=== PATIENT | female | born 1965 | race African-American/Black ===

== ENCOUNTER 2022-06-03 13:07 | Emergency (ER) | payer OTHER, SELFPAY ==
[2022-06-03] VITALS (18 sets, daily range): BP systolic 112–140; BP diastolic 72–93; PULSE 72–95; RESP 18; TEMP 36.3; O2SAT 94–100; BMI 38.7
--- NOTE | 2022-06-03 13:25 | ED_ITS ---
HPI - Chest Pain General Time Seen by Provider: 13:25 Date Seen: 06/03/22 Chief Complaint: Chest Pain Stated Complaint: Numb jaw Time Seen by Provider: 06/03/22 13:24 Source: patient, RN notes reviewed and old records reviewed Mode of arrival: ambulatory Limitations: no limitations History of Present Illness HPI narrative: Bebe is a very pleasant woman in no acute distress who presents to the emergency room for evaluation regarding chest pain. Patient was noted to have been sitting had her desk earlier today and had the onset of substernal chest pain with radiation into her left jaw. She is unsure of radiation into our her arms as she appears to have chronic discomfort from using a walker. She uses the walker because she needs to have a right hip replacement which is scheduled for June 24. Patient has not had this happen to her in the past. It is associated with some slight dizziness. She has not had fever cough cold or congestion or trauma. Patient's cardiac risk factors include hypertension hyperlipidemia, tobacco use and obesity. Related Data Home Medications Medication Instructions Recorded Confirmed cefdinir 300 mg capsule 300 mg PO 05/23/22 cyclobenzaprine 10 mg tablet mg PO 05/23/22 fluticasone propionate 50 intranasal 05/23/22 mcg/actuation nasal spray,suspension gabapentin 300 mg capsule mg PO 05/23/22 losartan 100 mg tablet mg PO 05/23/22 naproxen 500 mg tablet mg PO 05/23/22 prednisone 20 mg tablet See Rx Instructions PO .Daily Ud 05/23/22 ranitidine HCl 300 mg tablet 300 mg PO 05/23/22 rizatriptan 5 mg tablet mg PO 05/23/22 simvastatin 20 mg tablet mg PO 05/23/22 Allergies Allergy/AdvReac Type Severity Reaction Status Date / Time azithromycin Allergy Verified 05/26/22 15:21 hydrocodone Allergy Verified 05/26/22 15:21 latex Allergy Verified 05/26/22 15:21 Penicillin Allergy Uncoded 05/26/22 15:21 Review of Systems Status of ROS Reports: 10 or more systems reviewed and unremarkable except as noted in History and below Const Denies: fever, chills or fatigue Eyes Denies: change in vision ENMT Reports: neck pain (Left-sided into jaw) Cardio Reports: chest pain and swelling of feet/ankles (Right lower extremity attributed to right hip pain, 2 weeks); Denies: palpitations or shortness of breath with exertion Resp Denies: shortness of breath or cough GI Denies: abdominal pain, nausea, vomiting or diarrhea Denies: painful urination Musculo Reports: neck pain (Left-sided into jaw) and extremity pain (Right hip pain.); Denies: back pain Neuro Denies: headache Psych Reports: other (Considerable stress over past few weeks) Endo Denies: fatigue PFSH PFS Medical History Asthma High cholesterol Hypertension Low back pain Peptic ulcer Surgical History History of cholecystectomy Social History Smoking Status: Current every day smoker service: No Exam Narrative Exam Narrative: Patient is alert and oriented. Very pleasant woman in no acute distress. EOM is full face is symmetrical with eyebrow equal. Tongue is midline. Neck is supple. No carotid bruit. Heart with regular rate and rhythm without murmur or rub. Lungs are clear bilaterally. Abdomen obese soft nontender. Lower extremity show mildly increased edema of the right lower extremity. No calf tenderness negative Homans sign. Romberg is negative. Finger to nose within normal limits bilaterally unable to lift right leg off the bed secondary to right hip pain which is chronic. Pedal pulses symmetrical. Const Vital Signs, click to edit/add: Vital Signs - 24 hr 06/03/22 13:13 06/03/22 14:10 06/03/22 14:12 Temperature 97.3 F L Pulse Rate 85 90 Pulse Rate [Pulse Oximeter] 84 Respiratory Rate 18 Blood Pressure 134/85 Blood Pressure [Right Upper Arm] 112/78 Pulse Oximetry 97 99 97 Oxygen Delivery Method Room Air 06/03/22 14:13 06/03/22 14:30 06/03/22 14:31 Temperature Pulse Rate 79 74 72 Pulse Rate [Pulse Oximeter] Respiratory Rate Blood Pressure 120/76 Blood Pressure [Right Upper Arm] Pulse Oximetry 97 96 96 Oxygen Delivery Method 06/03/22 15:00 06/03/22 15:01 06/03/22 15:02 Temperature Pulse Rate 81 82 81 Pulse Rate [Pulse Oximeter] Respiratory Rate Blood Pressure 115/83 Blood Pressure [Right Upper Arm] Pulse Oximetry 100 97 96 Oxygen Delivery Method 06/03/22 15:30 06/03/22 15:31 06/03/22 16:01 Temperature Pulse Rate 81 72 Pulse Rate [Pulse Oximeter] Respiratory Rate Blood Pressure 137/83 139/93 H Blood Pressure [Right Upper Arm] Pulse Oximetry 96 98 Oxygen Delivery Method 06/03/22 16:06 06/03/22 16:30 06/03/22 16:31 Temperature Pulse Rate 90 94 93 Pulse Rate [Pulse Oximeter] Respiratory Rate Blood Pressure 130/80 Blood Pressure [Right Upper Arm] Pulse Oximetry 97 96 94 Oxygen Delivery Method 06/03/22 17:00 06/03/22 17:01 06/03/22 20:27 Temperature Pulse Rate 92 95 Pulse Rate [Pulse Oximeter] 74 Respiratory Rate Blood Pressure 136/83 Blood Pressure [Right Upper Arm] 140/72 H Pulse Oximetry 97 97 Oxygen Delivery Method Documenting provider has reviewed patient's vital signs: yes Course Course Hospital Course: Will obtain EKG, troponin x2. Chest x-ray place an IV and get labs including CBC, comprehensive panel, D-dimer, CRP and urinalysis. Will give aspirin 324 mg p.o. Reevaluation(s) Reevaluation #1: Patient noted to have a negative troponin and reassuring EKG. She still has some mild discomfort extending into her neck and jaw. She has had reassuring vital signs with normal O2 saturations and has not been tachycardic. Initially my concern was regarding PE given the right lower extremity edema but given vital signs I am more concerned regarding possible underlying aortic pathology. Patient will undergo CTA of the chest abdomen and pelvis. If negative we will follow up with a ultrasound of the lower extremities. Reevaluation #2: Following negative CT of the chest as well as reassuring lower extremity ultrasounds patient was given Toradol 15 mg IV she now has now had resolution of her pain as well as the numbness in her left jaw. Vital Signs Vital signs: Initial Vital Signs Temperature 97.3 F L 06/03/22 13:13 Temperature Source Temporal Artery Scan 06/03/22 13:13 Pulse Rate 84 06/03/22 13:13 Respiratory Rate 18 06/03/22 13:13 Blood Pressure 112/78 06/03/22 13:13 Blood Pressure Mean 89 06/03/22 13:13 Blood Pressure Position Supine 06/03/22 13:13 Pulse Oximetry 97 06/03/22 13:13 Oxygen Delivery Method 06/03/22 13:13 Vital Signs Temperature 97.3 F L 06/03/22 13:13 Pulse Rate 84 06/03/22 13:13 Respiratory Rate 18 06/03/22 13:13 Blood Pressure 112/78 06/03/22 13:13 Pulse Oximetry 97 06/03/22 13:13 Oxygen Delivery Method 06/03/22 13:13 Temperature 97.3 F L 06/03/22 13:13 Pulse Rate 74 06/03/22 20:27 Respiratory Rate 18 06/03/22 13:13 Blood Pressure 140/72 H 06/03/22 20:27 Pulse Oximetry 97 06/03/22 17:01 Oxygen Delivery Method 06/03/22 13:13 MDM - Chest Pain MDM Narrative Medical decision making narrative: 1. Atypical chest pain-at this time patient has EKGs and cardiac enzymes that do not show any evidence of acute coronary syndrome, pericarditis or arrhythmia. Chest CT was negative for evidence of aortic dissection and lower extremity Doppler did not show any evidence of DVT. Patient's discomfort is dissipated at this time after the administration of Toradol. While all of these tests are reassuring patient has multiple risk factors for heart disease. She cannot recall the last time she has had a stress test and she does have a pending hip surgery on June 24. Would recommend follow-up for scheduling of a chemical stress test. She may skip her aspirin dose tonight as we gave her full-dose today. She should return to the emergency room if she has return of her chest pain. 2. Disposition-patient is discharged home. She will return as needed. Discussion rate guarding light activity and attempts not to participate in stressful situations. Also given her days off of work including today tomorrow and June 05. Medical Records Data Attestation: I reviewed the patient's medical records. Lab Data Attestation: I reviewed the patient's lab results. Labs: Lab Results 06/03/22 06/03/22 06/03/22 Range/Units 14:05 14:05 14:05 WBC 6.59 (4.50-11.00) K/uL RBC 4.17 (4.00-5.20) m/uL Hgb 12.6 (12.0-16.0) gm/dL Hct 39.6 (33.0-51.0) % MCV 95 (80-100) fL MCH 30 (26-34) pg MCHC 32 (32-36) gm/dL RDW Coeff of Ra 13.4 (11.5-15.5) % Plt Count 241 (140-440) K/uL Neut % (Auto) 63.0 (42.0-72.0) % Lymph % (Auto) 28.2 (20-44) % [place] % (Auto) 6.7 (0.0-11.0) % Eos % (Auto) 1.7 (0.0-7.0) % Baso % (Auto) 0.2 (0.0-3.0) % Neut # (Auto) 4.16 (1.7-7.0) K/uL Lymph # (Auto) 1.86 (0.90-2.90) K/uL [place] # (Auto) 0.40 (0.00-0.90) K/UL Eos # (Auto) 0.11 (0.00-0.50) K/uL Baso # (Auto) 0.01 (0.00-0.30) K/uL Abs Immat Gran (auto) 0.01 (0.00-0.30) K/uL D-Dimer Quant (PE/DVT) 1.28 H (0.00-0.50) ug/ml Sodium 140 (135-149) mmol/L Potassium 4.0 (3.6-5.1) mmol/L Chloride 104 (96-114) mmol/L Carbon Dioxide 29 (20-32) mmol/L BUN 12 (7-30) mg/dL Creatinine 0.9 (0.5-1.5) mg/dL Estimated Creat Clear 63.78 Estimated GFR 74 ml/min Glucose 100 (60-115) mg/dL Calcium 9.7 (8.4-10.6) mg/dL Total Bilirubin 0.3 (0.1-1.5) mg/dL AST 27 (12-35) U/L ALT 24 (4-35) U/L Alkaline Phosphatase 114 (40-150) U/L Troponin I < 0.01 L (0.01-0.04) ng/mL Total Protein 7.6 (6.0-8.3) g/dL Albumin 4.4 (3.3-5.0) g/dL Urine Color (Yellow) Urine Appearance (Clear) Urine pH (5.0-8.5) Ur Specific [place] (1.000-1.030) Urine Protein (Negative) Urine Glucose (UA) (Negative) Urine Ketones (Negative) Urine Blood (Negative) Urine Nitrite (Negative) Urine Bilirubin (Negative) Urine Urobilinogen (0.2-1.0) Ur Leukocyte Esterase (Negative) Urine RBC (0-2) Urine WBC (0-5) Ur Squamous Epith Cells (None-Few) Urine Bacteria (None) 06/03/22 06/03/22 Range/Units 18:00 18:03 WBC (4.50-11.00) K/uL RBC (4.00-5.20) m/uL Hgb (12.0-16.0) gm/dL Hct (33.0-51.0) % MCV (80-100) fL MCH (26-34) pg MCHC (32-36) gm/dL RDW Coeff of Ra (11.5-15.5) % Plt Count (140-440) K/uL Neut % (Auto) (42.0-72.0) % Lymph % (Auto) (20-44) % [place] % (Auto) (0.0-11.0) % Eos % (Auto) (0.0-7.0) % Baso % (Auto) (0.0-3.0) % Neut # (Auto) (1.7-7.0) K/uL Lymph # (Auto) (0.90-2.90) K/uL [place] # (Auto) (0.00-0.90) K/UL Eos # (Auto) (0.00-0.50) K/uL Baso # (Auto) (0.00-0.30) K/uL Abs Immat Gran (auto) (0.00-0.30) K/uL D-Dimer Quant (PE/DVT) (0.00-0.50) ug/ml Sodium (135-149) mmol/L Potassium (3.6-5.1) mmol/L Chloride (96-114) mmol/L Carbon Dioxide (20-32) mmol/L BUN (7-30) mg/dL Creatinine (0.5-1.5) mg/dL Estimated Creat Clear Estimated GFR ml/min Glucose (60-115) mg/dL Calcium (8.4-10.6) mg/dL Total Bilirubin (0.1-1.5) mg/dL AST (12-35) U/L ALT (4-35) U/L Alkaline Phosphatase (40-150) U/L Troponin I < 0.01 L (0.01-0.04) ng/mL Total Protein (6.0-8.3) g/dL Albumin (3.3-5.0) g/dL Urine Color Yellow (Yellow) Urine Appearance Clear (Clear) Urine pH 6.0 (5.0-8.5) Ur Specific [place] 1.015 (1.000-1.030) Urine Protein Negative (Negative) Urine Glucose (UA) Negative (Negative) Urine Ketones Negative (Negative) Urine Blood Negative (Negative) Urine Nitrite Negative (Negative) Urine Bilirubin Negative (Negative) Urine Urobilinogen 0.2 (0.2-1.0) Ur Leukocyte Esterase Negative (Negative) Urine RBC 0-2 (0-2) Urine WBC 0-2 (0-5) Ur Squamous Epith Cells Few (None-Few) Urine Bacteria None (None) Imaging Data Chest x-ray: Attestation: I have reviewed the pertinent imaging results. My impression: No acute infiltrates Radiologist's impression: No acute findings CT Chest/Ab/Pelvis: Attestation: I have reviewed the pertinent imaging results. Radiologist's impression: No evidence of aortic aneurysm or dissection. No evidence of acute or chronic pulmonary thromboemboli. The origin of the great vessels is unremarkable. Normal size cardiac silhouette without any pericardial effusion. No abnormal mediastinal or hilar lymphadenopathy. No evidence of pleural effusion or chest wall pathology. No abnormal intra pulmonary nodular densities are identified. No focal hepatic or splenic pathology. Previously noted cystic lesion in the tail of the pancreas is not seen on the current study. Previously noted colitis involving the descending colon has resolved since the last previous study. No evidence of pancreatic ductal dilatation. No peripancreatic inflammatory changes. Status post cholecystectomy. No adrenal pathology. No kidney stones or obstructive uropathy. No retroperitoneal lymphadenopathy. Normal appendix. The uterine fibroids. IMPRESSION: 1. No evidence of aortic aneurysm or dissection. 2. Origin of the great vessels is unremarkable. 3. No evidence of pulmonary thromboemboli. 4. Uterine fibroids. 5. Previously noted lesion within the distal body/tail of the pancreas is not seen on the current study. 6. Uterine fibroids. ECG Data Attestation: I personally reviewed and interpreted this ECG as follows: ECG interpretation date: 06/04/22 Interpretation: EKG 1. By my read shows sinus rhythm without any acute ST or T-wave changes. EKG 2. By my read shows sinus rhythm with sinus arrhythmia the rate of 76. No indications of acute ST or T-wave changes. Discharge Plan Discharge Clinical Impression: Atypical chest pain Patient Disposition: Home, Self-Care Condition: Improved Additional Instructions: You may skip your dose of aspirin tonight as you received a full dose today. Recommend light activity and no work over the next 48 hours. I will provide a note to that extent. Recommend follow-up with your primary MD to be scheduled for a chemical stress test. Return as needed for worsening symptoms and as needed. Prescriptions: No Action rizatriptan 5 mg tablet PO naproxen 500 mg tablet PO fluticasone propionate 50 mcg/actuation spray,suspension intranasal losartan 100 mg tablet PO gabapentin 300 mg capsule PO simvastatin 20 mg tablet PO ranitidine HCl 300 mg tablet 300 mg PO cyclobenzaprine 10 mg tablet PO cefdinir 300 mg capsule 300 mg PO prednisone 20 mg tablet See Rx Instructions PO .Daily Ud Rx Instructions: 40 MG PO DAILY FOR 4 DAYS, THEN 20 MG PO DAILY FOR 2 DAYS Follow Up/Referrals: Chante Manley PA [Primary Care Provider] - Stand Alone Forms: [facility] Info Instructions
--- NOTE | 2022-06-03 13:37 | CRLHL7_ITS ---
For Patients: As a result of the Century Cures Act, medical imaging exams and procedure reports are released immediately into your electronic medical record. You may view this report before your referring provider. If you have questions, please contact your health care provider. INDICATION: Chest pain COMPARISON: December 02, 2021 TECHNIQUE: Single-view study FINDINGS: TUBES AND LINES: None. HEART AND MEDIASTINUM: The heart size is normal. The mediastinal contour appears normal for patient age. LUNGS AND PLEURAL SPACES: The lungs appear normal.The pleural spaces are unremarkable. OSSEOUS STRUCTURES: Age-appropriate appearance. No acute focal finding. IMPRESSION: Normal single-view chest radiograph Dictated by Gordo Ramirez MD @ 06/03/2022 2:43:42 PM (Electronically Signed)
[2022-06-03] MEDS: ASPIRIN 81 MG TAB.CHEW 324 MG PO (14:02)
--- OUTSIDE RECORDS SUMMARY | 2022-06-03 14:13 | XMS_ITS | Clinical Summary ---
:1965 Author Organization [employer] [facility] [place] [address] Care Team Providers Name Role Phone Chante Manley Primary Care Provider Allergies Active Allergy Reactions Severity Noted Date Comments Azithromycin Nausea Only 08/14/2010 Penicillins 05/31/2009 Hydrocodone-Acetaminophen Shortness Of Breath, Chest 1 Pain Medications Medication Sig Dispensed Refills Start Date End Date Status GLUCOSAMINE-CHONDROI take one tab 0 05/31/2009 Active TIN 500 MG-400 MG daily CAP MULTIVITAMIN TAB take 1 tablet 0 05/31/2009 Active by oral route once daily with food aspirin (ECOTRIN) 81 Take 1 tablet 0 08/04/2017 Active mg enteric coated by mouth once tablet daily with a meal. diphenhydrAMINE Take 1 capsule 0 04/11/2020 Active (BENADRYL) 25 mg by mouth at capsuleIndications: bedtime if Allergic rhinitis needed. due to other allergic trigger, unspecified seasonality mometasone-formotero Inhale 2 Puffs 13 g 12 04/01/2021 Active l (DULERA) 200-5 by mouth 2 mcg/actuation times daily. inhalerIndications: Cough fluticasone (50 mcg Inhale 2 1 Bottle 11 04/02/2021 Active per actuation) nasal Sprays into solution affected (FLONASE)Indications nostril(s) : Nasal congestion once daily. naproxen (NAPROSYN) Take 1 Tablet 180 tablet. 3 04/22/2021 Active 500 mg (500 mg) by tabletIndications: mouth 2 times Lumbar daily with radiculopathy, meals. Chronic pain of right knee triamcinolone Apply 80 g 1 05/30/2021 Activ e (ARISTOCORT; topically to KENALOG) 0.1 % affected creamIndications: area(s) 2 Itching times daily if needed for Other (Specify). To itching/rash in groin area. montelukast Take 1 Tablet 90 Tablet 1 11/24/2021 Act sonia (SINGULAIR) 10 mg (10 mg) by tabletIndications: mouth at Allergic rhinitis bedtime. due to other allergic trigger, unspecified seasonality rizatriptan (MAXALT) Give at 27 Tablet 1 12/12/2021 Active 5 mg minimum 2hrs tabletIndications: apart. TAKE 1 Migraine without TO 2 TABLETS status migrainosus, BY MOUTH AT not intractable, ONSET OF unspecified migraine MIGRAINE type NEEDED. MAY REPEAT IN 2 HOURS NEEDED. MAX 30MG in 24HR. albuterol HFA Inhale 1-2 8.5 g 2 12/30/2021 Acti ve (PRO-AIR; VENTOLIN; Puffs by mouth PROVENTIL) 90 every 4 hours mcg/actuation if needed for inhalerIndications: Shortness of Cough Breath 1st choice. gabapentin Take 300 mg 360 Capsule 1 02/20/2022 Acti ve (NEURONTIN) 300 mg AM, 300 mg PM, capsuleIndications: 600 mg Lumbar radiculopathy bedtime. cyclobenzaprine Take 1 Tablet 15 Tablet 1 03/31/2022 Active (FLEXERIL) 10 mg (10 mg) by tabletIndications: mouth 2 times Lumbar radiculopathy daily if needed for Muscle Spasm. CPAPIndications: MARII CPAP machine 1 Each 11 04/23/2022 Active (obstructive sleep for home use apnea) at pressure 4-15 cmw, nasal mask x1/3month with nasal pillows x 2/mo pantoprazole Take 1 Tablet 90 Tablet 1 05/20/2022 Ac tive (PROTONIX) 20 mg (20 mg) by tabletIndications: mouth once Chronic GERD daily before a meal losartan (COZAAR) Take 1 Tablet 90 Tablet 1 05/20/2022 Active 100 mg (100 mg) by tabletIndications: mouth once Hypertension, daily. unspecified type simvastatin (ZOCOR) Take 1 Tablet 90 Tablet 0 05/20/2022 Active 20 mg (20 mg) by tabletIndications: mouth at Hyperlipidemia, bedtime unspecified hyperlipidemia type losartan (COZAAR) Take 1 Tablet 90 Tablet 3 05/07/2021 0 Discontinued 100 mg (100 mg) by 22 tabletIndications: mouth once Hypertension, daily. unspecified type simvastatin (ZOCOR) Take 1 Tablet 90 Tablet 3 05/07/202105/20 Discontinued 20 mg (20 mg) by 22 tabletIndications: mouth at Hyperlipidemia, bedtime. unspecified hyperlipidemia type pantoprazole Take 1 Tablet 90 Tablet 1 10/09/2021 05/20/20 Di scontinued (PROTONIX) 20 mg (20 mg) by 22 tabletIndications: mouth once Chronic GERD daily before a meal Active Problems Problem Noted Date Chronic GERD 04/01/2021 Adenomatous colon polyp 10/15/2017 Overview: Colonoscopy 09/2017 polyp, repeat in 5 ye ars HTN (hypertension) 08/28/2015 Hyperlipidemia 01/24/2015 Type 2 diabetes mellitus without complication 01/25/20 15 Overview: Diagnosed January 2015. No current diabetes medications. Lumbar facet arthropathy 07/31/2011 DDD (degenerative disc disease), lumbar 06/30/2011 MARII 02/21/2010 AHI- 22 REM and position dependent 2009 Shift work sleep disorder 02/25/2010 Migraine, unspecified, without mention of intractable migraine without 12/20/2009 mention of status migrainosus Allergic rhinitis, cause unspecified 12/20/2009 Resolved Problems Problem Noted Date Resolved Date Impaired fasting glucose 01/23/2015 01/24/2015 Back pain 03/23/2013 10/25/2013 Trochanteric bursitis of right hip 07/31/201110/25 Reactive depression (situational) 04/03/20112012 Back pain 04/03/2011 07/31/2011 Prolonged depressive reaction 04/03/2011 02/17/2013 Encounters Date Type Specialty Care Team Description 05/19/2022 Telemedicine Aziza Remy Failed Appoin ELLIE Parker 05/19/2022 Refill Chante Manley Refill Request CHIDI Urban (Pantoprazole, Losartan, Simvastatin) 05/14/2022 Telephone Yevgeniy Willis MD Appointment 04/23/2022 Office Visit Yevgeniy Willis MD Sleep Follow -up 04/23/2022 Travel 04/21/2022 Office Visit Jc Bautista MD (Consult-allerg ic rhinitis referred by Eliana MURILLO) 04/21/2022 Telephone Yevgeniy Willis MD Medication M anagement 04/21/2022 Travel 04/16/2022 Telephone Jane Martin Prior Authori fanta Ni MD (gabapentin (NE URONTIN) 300 mg capsule APPROVED 03/17/22-04/16/23 ) 04/15/2022 Office Visit Eric Zavala Consult (Right leg pain ) MD Harvey 04/15/2022 Travel 04/09/2022 Ancillary Procedure 04/09/2022 Ancillary Procedure 04/09/2022 Office Visit Galileo Gutierrez MD (Right leg pain /injuries - needs a work le tter); Follow Up (See 02/[address] with Dr. Martin) 04/09/2022 Travel from Last 3 Months Immunizations Name Administration Dates Next Due HepA-HepB (Twinrix) 10/15/2018, 09/25/2017, 08/28/2015 Influenza, IIV3 (Age 6-35 mos) 06/25/2011 Influenza, IIV3 (Age >=3 years) 07/19/2014, 06/14/2013, 09/2010, 05/31/2009 Influenza, IIV4 05/30/2021, 10/15/2018, 09/25/2017, 05/22/2015 Influenza, IIV4 (=>6mos) MDV 06/04/2018 Pneumococcal Poly,23-Valent 05/30/2021 (Pneumovax) Tdap 10/15/2018, 05/31/2009 Family History Medical History Relation Name Comments Diabetes Brother Cancer Father trachea, lungs Diabetes Maternal Grandfather Diabetes Mother Diabetes Sister Cancer-breast No Family History Relation Name Status Comments Brother Father Maternal Grandfather Mother Sister Social History Tobacco Use Types Packs/Day Years Used Date Current Some Day Smoker Cigarettes 0.25 20 Smokeless Tobacco: Never Used Tobacco Cessation: Ready to Quit: Yes; C ounseling Given: Yes Comments: 2-3 cigarette per day, but not every day Alcohol Use Standard Drinks/Week Comments No 0 (1 standard drink = 0.6 oz pure alcoho l) 0 Alcohol Habits Answer Date Recorded How often do you have a drink containing alcohol? Not asked How many drinks containing alcohol do you have on a typical Not asked day when you are drinking? How often do you have six or more drinks on one occasion? No t asked Comment: 0 02/20/2022 Sex Assigned at Date Recorded Not on file Obstetrics History Last Filed Vital Signs Vital Sign Reading Time Taken Comments Blood Pressure 113/56 04/23/2022 3:03 PM CDT Pulse 91 04/23/2022 3:03 PM CDT Temperature 36.6 ??C (97.9 ??F) 04/21/2022 9:42 AM CDT Respiratory Rate 20 04/02/2021 3:46 PM CDT Oxygen Saturation 96% 04/23/2022 3:03 PM CDT Inhaled Oxygen Concentration - - Weight 107 kg (236 lb) 04/21/2022 9:42 AM CDT Height 165.7 cm (5' 5.25) 04/21/2022 9:42 AM CDT Body Mass Index 38.97 04/21/2022 9:42 AM CDT Plan of Treatment Health Maintenance Due Date Last Done Comments Zoster (shingles) series for age 1106/27/2013 50+ (1 of 2) Fecal testing non-DNA 01/31/2016 01/30/2015 (FIT,FOBT,iFOBT) for age 45-75 COVID-19 vaccine series (3 - 01/26/2021 12/01/2020, 021 Booster for Moderna series) Influenza for age 50-64 04/24/2022 05/30/2021, 10/15/2018, 06/04/2018, Additional history exists Depression screening for age 12+ 05/30/2022 05/30/2021, , 04/11/2020, Additional history exists Pneumococcal series for age 19-64 05/30/2022 05/30/2021 (2 - PCV) Colonoscopy through age 75 10/14/2022 10/14/2017, 8 Mammogram for age 45-75 02/06/2023 02/06/2022, 10/29/2018, 10/14/2017, Additional history exists BMI (ht and wt on same day) for 04/21/2023 04/21/2022, 02/2021, age 18+ 04/11/2020, Additional history exists Lipids for age 45-75 05/30/2026 05/30/2021, 09/20/2020, 10/15/2018, Additional history exists Pap test for age 21-65 05/30/2026 05/30/2021, 05/30/2021, 09/25/2017, Additional history exists Tetanus booster 10/15/2028 10/15/2018, 05/31/2009 Hepatitis B series for Diabetes Completed 10/15/2018, 09/2017, 08/28/2015 Tdap Completed 10/15/2018, 05/31/2009 Hepatitis C screening for age Completed 09/20/2020 18-79 Procedures Procedure Name Priority Date/Time Associated Diagnosis Comme nts NV SPMTRY W/VC Routine 04/21/2022 12:00 Allergic rhinitis EXPIRATORY MIGUE W/WO AM CDT due to other MXML VOL VNTJ allergic trigger, unspecified seasonality NV PERCUTANEOUS TESTS Routine 04/21/2022 12:00 Allergic rhinit is Results for this W/ALLERGENIC EXTRACTS AM CDT due to other proced ure are in allergic trigger, the result s unspecified section. seasonality XR SPINE LUMBAR 3 Routine 04/09/2022 9:38 AM Right buttock casper n Results for this VIEWS CDT procedure are i n the results section. XR HIP 1 VIEW W Routine 04/09/2022 9:38 AM Right groin pain Re sults for this PELVIS RIGHT CDT procedure are i n the results section. from Last 3 Months Results NV PERCUTANEOUS TESTS W/ALLERGENIC EXTRACTS (04/21/2022 12:00 AM CDT) Narrative This result has an attachment that is no t available. Jc Bautista MD [facility] - ALLERGY [facility] IMMUNOLOGY SERVICES NV SPIROMETRY W VITAL CAPACITY (04/21/2022 12:00 AM CDT) Narrative This result has an attachment that is no t available. Jc Bautista MD [facility] - RESPIRATORY SYSTEM SERV ICES XR SPINE LUMBAR 3 VIEWS (04/09/2022 9:38 AM CDT) Anatomical Region Laterality Modality LUMBAR SPINE Computed Radiography Specimen (Source) Anatomical Collection Method Collection Time Re ceived Time Location / / Volume Laterality 04/09/2022 12:47 PM CDT Impressions 04/09/2022 12:47 PM CDT Mild multilevel degenerative disc disease throughout the lumbar spine. Facet degeneration L4-5 and L5-S1 with g rade 1 degenerative spondylolisthesis L4 on L5. Dictated by Tom Pacheco MD @ Apr 09 2 022 12:47PM (Electronically Signed) ?? Narrative 04/09/2022 12:47 PM CDT For Patients: ??As a result of the Cures Act, medical imaging exams and procedure report s are released immediately into your [facility] medical record. ??You may view this report before your referring provider. ??If you have questions, please contact your health care provider. INDICATION: Right buttock pain TECHNIQUE: 3-view lumbar spine. COMPARISON: MRI 09/29/2019, x-rays 06/29/19 FINDINGS: Severe degenerative joint disease right hip. Slight rightward curvature lumbar spine. Status post cholecystectomy. Degenerative facet arthropathy L4-5 and L5- S1 with grade 1 degenerative spondylolisthes is of L4 on L5. Mild multilevel discogen ic spurring throughout the lumbar spine with relative preservation of the disc spaces. Procedure Note Tom Pacheco MD - 04/09/2022For matting of this note might be different from the original. For Patients: As a result of the Cures Act, medical imaging exams and procedure reports are released immediately into your electronic medical record. You may view this report before your referring provider. If you have questions, please contact yo health care provider. INDICATION: Right buttock pain TECHNIQUE: 3-view lumbar spine. COMPARISON: MRI 09/29/2019, x-rays 06/29/19 FINDINGS: Severe degenerative joint disease right hip. Slight rightward curvature lumbar spine. Status post cholecystectomy. Degenerative facet arthropathy L4-5 and L5- S1 with grade 1 degenerative spondylolisthesis of L4 on L5. Mild multilevel discogenic spurring thro ughout the lumbar spine with relative preservation of the disc spaces. IMPRESSION: Mild multilevel degenerative disc diseas e throughout the lumbar spine. Facet degeneration L4-5 and L5-S1 with g rade 1 degenerative spondylolisthesis L4 on L5. Dictated by Tom Pacheco MD @ Apr 09 12:47PM (Electronically Signed) Jane Martin MD GENERAL IMAGING XR HIP 1 VIEW W PELVIS RIGHT (04/09/2022 9:38 AM CDT) Anatomical Region Laterality Modality HIPS, HIPR, Pelvis Computed Radiography Specimen (Source) Anatomical Collection Method Collection Time Re ceived Time Location / / Volume Laterality 04/09/2022 12:45 PM CDT Narrative 04/09/2022 12:45 PM CDT For Patients: ??As a result of the Cures Act, medical imaging exams and procedure report s are released immediately into your [facility] medical record. ??You may view this report before your referring provider. ??If you have questions, please contact your health care provider. Indication: Right groin pain Technique: Pelvis and right hip 2 views Comparison: None Findings: Severe narrowing at the right hip joint with extensive subchondral cystic change and reactive sclerosis. No fracture. Moderate narrowing and spurring left hip joint. Mild degenerative changes at the SI joints. Impression: Severe degenerative joint disease right hip. Dictated by Tom Pacheco MD @ Apr 09 12:45PM (Electronically Signed) ?? Procedure Note Tom Pacheco MD - 04/09/2022For matting of this note might be different from the original. For Patients: As a result of the Cures Act, medical imaging exams and procedure reports are released immediately into your electronic medical record. You may view this report before your referring provider. If you have questions, please contact yo health care provider. Indication: Right groin pain Technique: Pelvis and right hip 2 views Comparison: None Findings: Severe narrowing at the right hip joint with extensive subchondral cystic change and reactive sclerosis. No fracture. Moderate narrowing and spurring left hip joint. Mild degenerative changes at the SI joints. Impression: Severe degenerative joint disease right hip. Dictated by Tom Pacheco MD @ Apr 09 12:45PM (Electronically Signed) Jane Martin MD GENERAL IMAGING from Last 3 Months Insurance Payer Benefit Plan / Subscriber ID Effective Dates Phone Addre ss Type Group WC WORKERS COMP LITO -[id number] 2020-Presen [address] [address] [place] [address] WC WORKERS COMP WC SFM [id number] 2020-Presen [address] [place] [address] WC WORKERS COMP WC SFM [id number] 2020-Presen [address] [place] [address] WC WORKERS COMP WC SFM [id number] 2020-Presen [address] [place] [address] MEDICA MEDICA CHOICE [id number] 2021-Present [address] [address] [place] [address] Bebe Christensen L Workers Comp Self 1965 [address] (Home) [address] [place] [address] Bebe Christensen L Workers [employer] Self 1965 [address] (Home) [address] [place] [address] Bebe Christensen L Workers [employer] Self 1965 [address] (Home) [place] [address] Orly Christensenyl L Workers Comp Self [address] (Home) [place] [address] Care Teams Television Camera Operator Relationship Specialty Start Date End Date Chante Manley PA PCP - General 05/31/09 [address] [place] [address]
[2022-06-03 14:18] LABS: Basophils Absolute Auto 0.01 K/uL (0.00-0.30); Basophils Percent Auto 0.2 % (0.0-3.0); Eosinophils Absolute Auto 0.11 K/uL (0.00-0.50); Eosinophils Percent Auto 1.7 % (0.0-7.0); Hematocrit 39.6 % (33.0-51.0); Hemoglobin* 12.6 gm/dL (12.0-16.0); Immature Granulocytes Abs Auto 0.01 K/uL (0.00-0.30); Lymphocytes Absolute Auto 1.86 K/uL (0.90-2.90); Lymphocytes Percent Auto 28.2 % (20-44); Mean Corpuscular HGB Conc 32 gm/dL (32-36); Mean Corpuscular Hemoglobin 30 pg (26-34); Mean Corpuscular Volume 95 fL (80-100); Monocytes Percent Auto 6.7 % (0.0-11.0); Neutrophils Absolute Auto 4.16 K/uL (1.7-7.0); Platelet Count* 241 K/uL (140-440); RDW Coefficient of Variation % 13.4 % (11.5-15.5); Red Blood Count 4.17 m/uL (4.00-5.20); White Blood Count* 6.59 K/uL (4.50-11.00)
[2022-06-03 14:24] LABS: Slide Review Reflex No
[2022-06-03 14:31] LABS: Albumin* 4.4 g/dL (3.3-5.0); Chloride* 104 mmol/L (96-114)
[2022-06-03 14:32] LABS: Sodium* 140 mmol/L (135-149)
[2022-06-03 14:34] LABS: Alkaline Phosphatase* 114 U/L (40-150); Aspartate Amino Transferase* 27 U/L (12-35); Bilirubin Total* 0.3 mg/dL (0.1-1.5); Carbon Dioxide* 29 mmol/L (20-32); Creatinine* 0.9 mg/dL (0.5-1.5); Est. Creatinine Clearance* 63.78; Estimated Glomerular Filt Rate 74 ml/min; Total Protein* 7.6 g/dL (6.0-8.3)
[2022-06-03 14:35] LABS: Alanine Aminotransferase* 24 U/L (4-35); Blood Urea Nitrogen* 12 mg/dL (7-30); Calcium* 9.7 mg/dL (8.4-10.6); Glucose* 100 mg/dL (60-115)
[2022-06-03 14:39] LABS: D Dimer Quantitative* 1.28 ug/ml (0.00-0.50)
[2022-06-03 14:52] LABS: Troponin I* < 0.01 ng/mL (0.01-0.04)
--- NOTE | 2022-06-03 15:20 | CRLHL7_ITS ---
For Patients: As a result of the Cures Act, medical imaging exams and procedure reports are released immediately into your electronic medical record. You may view this report before your referring provider. If you have questions, please contact your health care provider. INDICATION: Chest pain radiating to the neck; rule out aortic dissection. COMPARISON: CT abdomen and pelvis with intravenous contrast April 16, 2020 ; Portable AP Chest rectal 2021. TECHNIQUE: CT angio chest with intravenous contrast; CT abdomen and pelvis with intravenous contrast; coronal and sagittal reformats. FINDINGS: No evidence of aortic aneurysm or dissection. No evidence of acute or chronic pulmonary thromboemboli. The origin of the great vessels is unremarkable. Normal size cardiac silhouette without any pericardial effusion. No abnormal mediastinal or hilar lymphadenopathy. No evidence of pleural effusion or chest wall pathology. No abnormal intra pulmonary nodular densities are identified. No focal hepatic or splenic pathology. Previously noted cystic lesion in the tail of the pancreas is not seen on the current study. Previously noted colitis involving the descending colon has resolved since the last previous study. No evidence of pancreatic ductal dilatation. No peripancreatic inflammatory changes. Status post cholecystectomy. No adrenal pathology. No kidney stones or obstructive uropathy. No retroperitoneal lymphadenopathy. Normal appendix. The uterine fibroids. IMPRESSION: 1. No evidence of aortic aneurysm or dissection. 2. Origin of the great vessels is unremarkable. 3. No evidence of pulmonary thromboemboli. 4. Uterine fibroids. 5. Previously noted lesion within the distal body/tail of the pancreas is not seen on the current study. 6. Uterine fibroids. Please note that all CT scans at this facility use dose modulation, iterative reconstruction, and/or weight-based dosing when appropriate to reduce radiation dose to as low as reasonably achievable. Dictated by John Montesinos MD @ 06/03/2022 5:59:18 PM (Electronically Signed)
--- NOTE | 2022-06-03 15:44 | PC.NURSE ---
pt given meal tray per request
--- NOTE | 2022-06-03 18:05 | CRLHL7_ITS ---
For Patients: As a result of the Century Cures Act, medical imaging exams and procedure reports are released immediately into your electronic medical record. You may view this report before your referring provider. If you have questions, please contact your health care provider. INDICATION: Elevated D-dimer. TECHNIQUE: Ultrasound venous duplex bilateral lower extremity. Compression venous exam was performed using lindsay-scale, color Doppler, and spectral Doppler analysis. COMPARISON: None. FINDINGS: Deep veins: Sonographic imaging demonstrates the right common femoral, deep femoral, superficial femoral, popliteal, posterior tibial and the contralateral right common femoral veins to be fully compressible with normal color Doppler blood flow. Superficial veins: Greater saphenous vein is fully compressible. No popliteal cyst. IMPRESSION: Normal bilateral lower extremity venous ultrasound, no sign of deep venous thrombosis. Dictated by Nicolás Hernandez MD @ 06/03/2022 7:27:57 PM (Electronically Signed)
[2022-06-03 18:11] LABS: Appearance Urine Clear (Clear); Bilirubin Urine Negative (Negative); Blood Urine Negative (Negative); Color Urine Yellow (Yellow); Glucose Urine Negative (Negative); Ketones Urine Negative (Negative); Leukocyte Esterase Urine Negative (Negative); Nitrite Urine Negative (Negative); Protein Urine Negative (Negative); Specific Gravity Urine 1.015 (1.000-1.030); Urobilinogen Urine 0.2 (0.2-1.0)
[2022-06-03 18:25] LABS: RBC Urine 0-2 (0-2); Squamous Epithelial Cell Urine Few (None-Few); WBC Urine 0-2 (0-5)
[2022-06-03 18:43] LABS: Troponin I* < 0.01 ng/mL (0.01-0.04)
[2022-06-03] MEDS: 0.9 % SODIUM CHLORIDE 500 ML 500 ML IV (19:20)
[2022-06-03] MEDS: KETOROLAC 15 MG/ML inj IVP (19:22)
== END 2022-06-03 20:31 | disposition home or self-care (01) ==
PROVIDERS: Emergency Provider Family Medicine; PCP Physician Assistant
DX: R07.89 Other chest pain (principal)
CPT/HCPCS: 36415; 71045; 71260; 74177; 80053; 81001; 84484; 85025; 85379; 93005; 93970; 96374; 99285; A9270; J1885; J7120; Q9967

== ENCOUNTER 2022-06-24 06:42 | Day surgery (SDC) | payer OTHER, SELFPAY ==
[2022-06-24] VITALS (32 sets, daily range): BP systolic 93–128; BP diastolic 54–89; PULSE 64–96; RESP 12–20; TEMP 36.5–37.4; O2SAT 92–100; BMI 38.7
[2022-06-24] MEDS: LACTATED RINGERS 1000 ML 1,000 ML 100 ML IV ×2 (07:30→10:54)
[2022-06-24] MEDS: CELECOXIB 200 MG CAPSULE PO ×2 (08:15→21:23)
[2022-06-24] MEDS: OXYCODONE (CR) 10 MG TAB.ER.12H PO (08:15)
[2022-06-24] MEDS: ACETAMINOPHEN 500 MG TABLET 1000 MG PO ×2 (08:15→20:19)
[2022-06-24] MEDS: ETHYL CHLORIDE 1 APPLICATION 1 APPLIC TOPICAL (08:34)
[2022-06-24] MEDS: SODIUM CHLORIDE 0.9 % (FLUSH) 10 ML SYRINGE IVF (08:35)
--- NOTE | 2022-06-24 08:41 | CRLHL7_ITS ---
For Patients: As a result of the Cures Act, medical imaging exams and procedure reports are released immediately into your electronic medical record. You may view this report before your referring provider. If you have questions, please contact your health care provider. Indication: Hip replacement surgery Technique: AP hip fluoroscopic images. Fluoroscopy time 65.0 seconds. Findings/Impression: Hardware from a right total hip arthroplasty is in satisfactory position. Dictated by Tom Pacheco MD @ 06/24/2022 11:43:49 AM (Electronically Signed)
--- NOTE | 2022-06-24 08:43 | SUR.PREOP ---
TIME?OUT:?0843 PT/RN CARLOS EDUARDO /ANUPAMA?DR Gomez SPEARS VERIFICATION?OF?SURGICAL?SITE RIGHT HIP ,?PROCEDURE NERVE BLOCK,?AND?CONSENT OBTAINED?PRIOR?TO?INVASIVE?PROCEDURE.
[2022-06-24] MEDS: fentaNYL 100 MCG/2 ML inj IVP (08:46)
[2022-06-24] MEDS: MIDAZOLAM HCL 1 MG/ML inj IVP (08:46)
--- NOTE | 2022-06-24 08:53 | W.PM.NB ---
Nerve Block Nerve Block Time Seen by Provider: 08:54 Date Seen: 06/24/22 Type of block requested by surgeon for post-operative analgesia: MALENA/LFCN Side: right Time out performed: Yes Verification of patient name: Yes Verification of date of : Yes Site marking: site marked Name of person performing procedure: Shelton Continuous monitoring Was continuous monitoring of O2 sat, B/P, conveyor monitor, recorded every 15 minutes?: Yes Procedure Checklist: sterile prep, needles and gloves Ultrasound guided. Images saved: Yes Medications given in 5ml increments after negative aspiration: Ropivicaine %: 0.5 mL: 30 Needle gauge: 20 Decadron (mg): 10 Precedex (mcg): 25 Patient tolerated procedure well: Yes Additional comments: Needle noted below psoas tendon needle noted adjacent to LFCN Block Charges Block Charge (with Pro Fee): Other Periph Nerve Block Use of Ultrasound Machine for Block: Yes- US Guidance/pain block
[2022-06-24] MEDS: CEFAZOLIN 2 GM INJ IVP (09:45)
[2022-06-24] MEDS: TRANEXAMIC ACID 100 MG/ML INJ 1000 MG IV (09:50)
--- NOTE | 2022-06-24 11:35 | CRLHL7_ITS ---
For Patients: As a result of the Cures Act, medical imaging exams and procedure reports are released immediately into your electronic medical record. You may view this report before your referring provider. If you have questions, please contact your health care provider. Indication: POST OP RIGHT OSEAS Technique: AP pelvis and lateral view right hip Findings/Impression: Hardware from a right total hip arthroplasty is in satisfactory position. Bone alignment is normal. No sign of acute fracture. Postop changes are within normal limits. Dictated by Tom Pacheco MD @ 06/24/2022 1:40:06 PM (Electronically Signed)
--- NOTE | 2022-06-24 11:37 | P.ORPRC_ITS ---
Procedure Note Date of procedure: 06/24/22 Procedure: SURGEON: Marcus Mc MD COREMAKER SUPERVISOR: Christine Molina PA-C, ANUEL Don PREOPERATIVE DIAGNOSIS: Right hip osteoarthritis POSTOPERATIVE DIAGNOSIS: Right hip osteoarthritis NAME OF OPERATION: Right total hip arthroplasty IMPLANTS: 1. [employer] Empire # 52 sector ingrowth cup 2. 36 x 52 +4 neutral polyethylene 3. Actis # 5 standard collared ingrowth stem 4. 36 + 1.5 ceramic femoral head ANESTHESIA: General ESTIMATED BLOOD LOSS: 200 cc COMPLICATIONS: None SPECIMENS: None DRAINS: None PREOPERATIVE ANTIBIOTICS: Ancef 2 grams INDICATIONS: The patient is a 56-year-old with a longstanding history of severe, unrelenting right hip pain secondary to end-stage right hip osteoarthritis. Despite appropriate nonoperative management, including activity modification, use of an assist device, anti-inflammatories, grxm-cdo-cmumxzw pain medication, physical therapy and injections, they continue to have pain and disability. Operative intervention was offered. The risks, benefits and expected outcomes were discussed in detail. These included but were not limited to: Infection, bleeding, injury to blood vessel or nerve, venous thromboembolism. All questions were answered to their satisfaction. Use of an engineer second assistant was necessary throughout the case for patient positioning and safety, soft tissue retraction and closure. PROCEDURE: The patient was placed supine on the [place] table. General anesthesia was administered. The engineer second assistant made sure the patient was properly positioned. The right hip was prepped and draped in the usual sterile fashion. The image intensifier was brought in for a perfect AP pelvis and a perfect double tear drop AP view of each hip which were used for intraoperative templating with our fluoroscopic guide. An oblique incision was made 3 cm distal and 3 cm lateral to the anterior super ior iliac spine. The engineer second assistant retracted the soft tissues to protect them. Subcutaneous dissection was taken with electrocautery to the superficial fascia. The fascia was divided in line with the incision. Blunt dissection was carried medially to the tensor fascia kendrick and sartorius interval. Deep dissection was carried with electrocautery. The circumflex vessels were cauterized and divided. The capsule was exposed and then divided in a T-fashion, tagged with #1 Ethibond sutures. Retractors were placed in the joint, held by the engineer second assistant. The corkscrew was placed in the femoral head. The neck cut was made in the subcapital region. We made a second neck cut more distal. The napkin ring of bone was removed. The femoral head was removed intact. Acetabular retractors were placed, held by the engineer second assistant. The labrum was sharply debrided. The capsule was released. The 43 mm reamer was used to the true medial wall. We then enlarged in 2 mm increments using the image intensifier for our reamer placement. We impacted the cup which had excellent purchase. We placed the hole eliminator and the polyethylene. Attention was then turned to the proximal femur. The limb was placed in 140 degrees of external rotation, maximum extension and adduction. A significant amount of time was spent releasing the capsule to allow us to deliver the femur into the wound and complete the femoral side safely. Retractors were held by the engineer second assistant throughout the femoral preparation. The ammonia box tender and canal finder were used. Broaches were used to a stable size. The calcar reamer was used. Trial components were placed. The hip was reduced and was found to be stable with appropriate soft tissue tension. Length and offset had been nicely restored using the image intensifier and our fluoroscopic guide. Trial components were removed. The stem was impacted. We placed the femoral head. Again, the hip was reduced and was found to be stable with appropriate soft tissue tension. Length and offset had been nicely restored. The engineer second assistant did a three minute dilute Betadine solution soak. The engineer second assistant irrigated the wound with 3 liters of normal saline via pulse lavage. The engineer second assistant repaired the anterior capsule with a #1 Vicryl and our previously placed Ethibond sutures. The engineer second assistant closed the fascia over the tensor fascia kendrick with a #1 PDO Stratafix, subcutaneous tissues with 2-0 Vicryl, skin with a running 3-0 Stratafix and glue. A dry dressing was applied by the engineer second assistant. Sponge and needle counts were correct x 2. The patient tolerated the procedure well; there were no apparent complications. They were awakened and extubated in the operating room, sent to the Post-Anesthesia Care Unit in satisfactory condition. PLAN: 1. The patient will be mobilized with physical therapy, weight-bearing as tolerates 2. Xarelto x 5 days then aspirin x 30 days will be used for DVT prophylaxis 3. The patient will be discharged once medically appropriate
--- NOTE | 2022-06-24 12:01 | W.ANESCHARGE ---
Anesthesia Charges Start Date/Time Anesthesia Start Date: 06/24/22 Anesthesia Start Time: 09:38 Stop Date/Time Anesthesia Stop Date: 06/24/22 Anesthesia Stop Time: 12:19 Summary Emergency: No
--- NOTE | 2022-06-24 12:20 | W.ANESCHARGE ---
Anesthesia Charges Start Date/Time Anesthesia Start Date: 06/24/22 Anesthesia Start Time: 09:38 Stop Date/Time Anesthesia Stop Date: 06/24/22 Anesthesia Stop Time: 12:19 Summary Emergency: No
[2022-06-24] MEDS: ONDANSETRON 2 MG/ML inj 4 MG IVP ×3 (12:44→19:59)
[2022-06-24] MEDS: fentaNYL 100 MCG/2 ML inj 50 MCG IVP (12:58)
[2022-06-24] MEDS: METOCLOPRAMIDE HCL 5 MG/ML INJ 10 MG IVP (13:02)
--- NOTE | 2022-06-24 13:50 | PM.IMHP1 ---
Hospitalist- H&P: HPI History of Present Illness Date Seen: 06/24/22 Chief complaint: 06/24/22 Right Total Hip, Alexandro Narrative: Bebe Christensen is a 56 year old female who presented to the hospital today for an elective right OSEAS. There were no surgical or anesthetic complications noted during procedure. Patient's H&P reviewed, PCP is Chante Manley at the [facility] locally. Past medical history significant for: MARII on CPAP, ccw-jdoqgpg-gplpepavw DM2 (A1C 6.January), mild persistent asthma, essential hypertension. Bebe was seen at the hospital for chest pain in early May, had a stress test performed 06/20/2022 that was reassuring. History of blood clots: Postoperative plan: Review of Systems Status of ROS: Reports: 10 or more systems reviewed and unremarkable except as noted in History and below [facility] Medical History (Updated 06/24/22 @ 13:57 by Alejandra Hein MD) Asthma High cholesterol Hypertension Low back pain Non-insulin dependent diabetes mellitus MARII on CPAP Peptic ulcer Surgical History (Updated 06/24/22 @ 13:57 by Alejandra Hein MD) History of cholecystectomy S/P hip replacement Social History Smoking Status: Current every day smoker What tobacco products do you use: cigarettes Years smoked: 30 How often do you have a drink containing alcohol: monthly or less How many standard drinks containing alcohol do you have on a typical day: 1 or 2 How often do you have six or more drinks on one occasion: Less than monthly AUDIT-C Alcohol total score: 2 Non-prescribed substance use: denies use Caffeine: No Are you using contraception or practicing any form of control: No service: No Meds Home Medications and Allergies Home Medications Medication Instructions Recorded Confirmed Type cyclobenzaprine 10 mg tablet 10 mg PO BID PRN 05/23/22 06/23/22 History fluticasone propionate 50 2 spray intranasal DAILY 05/23/22 06/24/22 History mcg/actuation nasal spray,suspension gabapentin 300 mg capsule 300 - 600 mg PO TID 05/23/22 06/24/22 History losartan 100 mg tablet 100 mg PO DAILY 05/23/22 06/23/22 History naproxen 500 mg tablet 500 mg PO BIDWM 05/23/22 06/24/22 History rizatriptan 5 mg tablet 5 mg PO Q2H PRN 05/23/22 06/24/22 History simvastatin 20 mg tablet 20 mg PO HS 05/23/22 06/24/22 History albuterol sulfate 90 mcg/actuation 2 puff inhalation Q4H PRN 06/23/22 06/24/22 History aerosol inhaler aspirin 81 mg tablet,delayed 81 mg PO DAILY 06/23/22 06/24/22 History release diphenhydramine HCl 25 mg tablet 25 mg PO QHS PRN 06/23/22 06/24/22 History ([id number]) mometasone-formoterol HFA 200 2 inh inhalation BID 06/23/22 06/24/22 History mcg-5 mcg/actuation aerosol inhaler (Dulera) montelukast 10 mg tablet 10 mg PO HS 06/23/22 06/23/22 History multivitamin 1 tab PO DAILY 06/23/22 06/24/22 History pantoprazole 20 mg tablet,delayed 20 mg PO DAILY 06/23/22 06/24/22 History release levetiracetam 500 mg 500 mg PO HS 06/24/22 06/24/22 History tablet,extended release 24 hr Allergies Allergy/AdvReac Type Severity Reaction Status Date / Time Penicillins Allergy Intermediate Unknown Verified 06/24/22 09:09 azithromycin Allergy Unknown Verified 06/24/22 09:09 hydrocodone Allergy Chest Pain Verified 06/24/22 09:09 latex Allergy Rash Verified 06/24/22 09:09 Exam Const: Vital Signs, click to edit/add: Vital Signs - 24 hr 06/24/22 07:47 06/24/22 08:45 06/24/22 08:50 Temperature 98.3 F Pulse Rate 88 83 79 Respiratory Rate 16 14 14 Blood Pressure 104/84 116/89 110/74 Pulse Oximetry 96 99 99 Oxygen Delivery Me thod Room Air Nasal Cannula Nasal Cannula Oxygen Flow Rate 2 2 06/24/22 08:55 06/24/22 09:06 06/24/22 12:16 Temperature 97.7 F Pulse Rate 80 74 96 Respiratory Rate 14 16 14 Blood Pressure 110/74 108/74 106/67 Pulse Oximetry 98 100 100 Oxygen Delivery Me thod Nasal Cannula Nasal Cannula OxyMask Oxygen Flow Rate 2 2 6 06/24/22 12:20 06/24/22 12:30 06/24/22 12:25 Temperature 97.7 F 97.7 F 97.7 F Pulse Rate 95 88 90 Respiratory Rate 14 16 15 Blood Pressure 105/75 100/69 104/71 Pulse Oximetry 100 100 100 Oxygen Delivery Me thod OxyMask OxyMask OxyMask Oxygen Flow Rate 6 6 6 06/24/22 12:35 06/24/22 12:50 06/24/22 12:40 Temperature 97.7 F 97.7 F 97.7 F Pulse Rate 80 80 82 Respiratory Rate 16 20 15 Blood Pressure 97/66 104/68 109/68 Pulse Oximetry 100 97 100 Oxygen Delivery Me thod OxyMask Room Air OxyMask Oxygen Flow Rate 6 0 6 06/24/22 12:45 06/24/22 12:55 06/24/22 13:00 Temperature 97.7 F 97.7 F 97.7 F Pulse Rate 77 83 76 Respiratory Rate 16 20 12 Blood Pressure 111/67 101/66 93/59 L Pulse Oximetry 98 100 100 Oxygen Delivery Me thod Room Air Room Air Room Air Oxygen Flow Rate 0 0 0 06/24/22 13:05 06/24/22 13:10 06/24/22 13:15 Temperature 97.7 F 97.7 F 97.7 F Pulse Rate 77 78 77 Respiratory Rate 12 12 12 Blood Pressure 100/63 102/69 100/67 Pulse Oximetry 95 100 100 Oxygen Delivery Me thod OxyMask OxyMask OxyMask Oxygen Flow Rate 6 6 6 06/24/22 13:20 06/24/22 13:25 06/24/22 13:30 Temperature 97.8 F 97.8 F 97.8 F Pulse Rate 74 77 77 Respiratory Rate 12 12 12 Blood Pressure 95/58 L 96/54 L 97/60 Pulse Oximetry 92 92 98 Oxygen Delivery Me thod Room Air Room Air Room Air Oxygen Flow Rate 0 0 0 Assessment and Plan Assessment and plan (1) S/P hip replacement: Status: Acute (2) MARII on CPAP: Status: Acute (3) Non-insulin dependent diabetes mellitus: Status: Acute
[2022-06-24] MEDS: HYDROmorphone 0.5 mg/0.5 ml inj IVP (14:02)
--- NOTE | 2022-06-24 15:10 | P.IMCN_ITS ---
Date of Consult Patient: Bettye Patient Consult date: 06/24/22 Requesting Physician: Orthopedics Primary Care Provider: CHIDI Le Consult Narrative Narrative: Bebe Christensen is a 56 year old female who presented to the hospital today for an elective right OSEAS. There were no surgical or anesthetic complications noted during procedure. Patient's H&P reviewed, PCP is Chante Manley at the [facility] locally. Past medical history significant for: MARII on CPAP, mild intermittent asthma, ssg-ajdvpte-sgxfhszcm DM2 (A1C 6.January), mild persistent asthma, essential hypertension. Bebe was seen at the hospital for chest pain in early May, had a stress test performed 06/20/2022 that was reassuring. History of blood clots: No Postoperative plan: Home with friend for support. Review of Systems Status of ROS: Reports: 10 or more systems reviewed and unremarkable except as noted in History and below Narrative: Patient did not bring CPAP to the hospital, felt that she would be okay without it for 1 night. [facility] Medical History (Updated 06/24/22 @ 15:08 by Alejandra Hein MD) Asthma High cholesterol Hypertension Low back pain Non-insulin dependent diabetes mellitus MARII on CPAP Peptic ulcer Surgical History (Updated 06/24/22 @ 13:57 by Alejandra Hein MD) History of cholecystectomy S/P hip replacement Social History Smoking Status: Current every day smoker What tobacco products do you use: cigarettes Years smoked: 30 How often do you have a drink containing alcohol: monthly or less How many standard drinks containing alcohol do you have on a typical day: 1 or 2 How often do you have six or more drinks on one occasion: Less than monthly AUDIT-C Alcohol total score: 2 Non-prescribed substance use: denies use Caffeine: No Are you using contraception or practicing any form of control: No service: No Meds Home Medications and Allergies Home Medications Medication Instructions Recorded Confirmed Type cyclobenzaprine 10 mg tablet 10 mg PO BID PRN 05/23/22 06/23/22 History fluticasone propionate 50 2 spray intranasal DAILY 05/23/22 06/24/22 History mcg/actuation nasal spray,suspension gabapentin 300 mg capsule 300 - 600 mg PO TID 05/23/22 06/24/22 History losartan 100 mg tablet 100 mg PO DAILY 05/23/22 06/23/22 History naproxen 500 mg tablet 500 mg PO BIDWM 05/23/22 06/24/22 History rizatriptan 5 mg tablet 5 mg PO Q2H PRN 05/23/22 06/24/22 History simvastatin 20 mg tablet 20 mg PO HS 05/23/22 06/24/22 History albuterol sulfate 90 mcg/actuation 2 puff inhalation Q4H PRN 06/23/22 06/24/22 History aerosol inhaler aspirin 81 mg tablet,delayed 81 mg PO DAILY 06/23/22 06/24/22 History release diphenhydramine HCl 25 mg tablet 25 mg PO QHS PRN 06/23/22 06/24/22 History ([id number]) mometasone-formoterol HFA 200 2 inh inhalation BID 06/23/22 06/24/22 History mcg-5 mcg/actuation aerosol inhaler (Dulera) montelukast 10 mg tablet 10 mg PO HS 06/23/22 06/23/22 History multivitamin 1 tab PO DAILY 06/23/22 06/24/22 History pantoprazole 20 mg tablet,delayed 20 mg PO DAILY 06/23/22 06/24/22 History release levetiracetam 500 mg 500 mg PO HS 06/24/22 06/24/22 History tablet,extended release 24 hr Allergies Allergy/AdvReac Type Severity Reaction Status Date / Time Penicillins Allergy Intermediate Unknown Verified 06/24/22 09:09 azithromycin Allergy Unknown Verified 06/24/22 09:09 hydrocodone Allergy Chest Pain Verified 06/24/22 09:09 latex Allergy Rash Verified 06/24/22 09:09 Exam Narrative: Exam Narrative: GEN: Alert and oriented, answering questions appropriately, comfortable in hospital bed HEENT: Normal external ears, EOMIs bilaterally, no scleral icterus CV: RRR, No concerning murmurs, rubs, or gallops R: LCTA bilaterally without concerning wheezing, rales, or rhonchi Ext: wwp, no concerning edema Skin: No concerning skin lesions or rashes on exposed skin Neuro: Nonfocal Psych: Appropriate Const: Vital Signs, click to edit/add: Vital Signs - 24 hr 06/24/22 07:47 06/24/22 08:45 06/24/22 08:50 Temperature 98.3 F Pulse Rate 88 83 79 Pulse Rate [Pulse Oximeter] Respiratory Rate 16 14 14 Blood Pressure 104/84 116/89 110/74 Blood Pressure [Ri ght Arm] Pulse Oximetry 96 99 99 Oxygen Delivery Me thod Room Air Nasal Cannula Nasal Cannula Oxygen Flow Rate 2 2 06/24/22 08:55 06/24/22 09:06 06/24/22 12:16 Temperature 97.7 F Pulse Rate 80 74 96 Pulse Rate [Pulse Oximeter] Respiratory Rate 14 16 14 Blood Pressure 110/74 108/74 106/67 Blood Pressure [Ri ght Arm] Pulse Oximetry 98 100 100 Oxygen Delivery Me thod Nasal Cannula Nasal Cannula OxyMask Oxygen Flow Rate 2 2 6 06/24/22 12:20 06/24/22 12:30 06/24/22 12:25 Temperature 97.7 F 97.7 F 97.7 F Pulse Rate 95 88 90 Pulse Rate [Pulse Oximeter] Respiratory Rate 14 16 15 Blood Pressure 105/75 100/69 104/71 Blood Pressure [Ri ght Arm] Pulse Oximetry 100 100 100 Oxygen Delivery Me thod OxyMask OxyMask OxyMask Oxygen Flow Rate 6 6 6 06/24/22 12:35 06/24/22 12:50 06/24/22 12:40 Temperature 97.7 F 97.7 F 97.7 F Pulse Rate 80 80 82 Pulse Rate [Pulse Oximeter] Respiratory Rate 16 20 15 Blood Pressure 97/66 104/68 109/68 Blood Pressure [Ri ght Arm] Pulse Oximetry 100 97 100 Oxygen Delivery Me thod OxyMask Room Air OxyMask Oxygen Flow Rate 6 0 6 06/24/22 12:45 06/24/22 12:55 06/24/22 13:00 Temperature 97.7 F 97.7 F 97.7 F Pulse Rate 77 83 76 Pulse Rate [Pulse Oximeter] Respiratory Rate 16 20 12 Blood Pressure 111/67 101/66 93/59 L Blood Pressure [Ri ght Arm] Pulse Oximetry 98 100 100 Oxygen Delivery Me thod Room Air Room Air Room Air Oxygen Flow Rate 0 0 0 06/24/22 13:05 06/24/22 13:10 06/24/22 13:15 Temperature 97.7 F 97.7 F 97.7 F Pulse Rate 77 78 77 Pulse Rate [Pulse Oximeter] Respiratory Rate 12 12 12 Blood Pressure 100/63 102/69 100/67 Blood Pressure [Ri ght Arm] Pulse Oximetry 95 100 100 Oxygen Delivery Me thod OxyMask OxyMask OxyMask Oxygen Flow Rate 6 6 6 06/24/22 13:20 06/24/22 13:25 06/24/22 13:30 Temperature 97.8 F 97.8 F 97.8 F Pulse Rate 74 77 77 Pulse Rate [Pulse Oximeter] Respiratory Rate 12 12 12 Blood Pressure 95/58 L 96/54 L 97/60 Blood Pressure [Ri ght Arm] Pulse Oximetry 92 92 98 Oxygen Delivery Me thod Room Air Room Air Room Air Oxygen Flow Rate 0 0 0 06/24/22 13:44 06/24/22 13:45 06/24/22 14:00 Temperature 97.9 F 98.1 F 98.5 F Pulse Rate 72 Pulse Rate [Pulse Oximeter] 70 75 Respiratory Rate 14 14 14 Blood Pressure Blood Pressure [Ri ght Arm] 114/66 108/69 113/78 Pulse Oximetry 96 94 Oxygen Delivery Me thod Room Air Room Air Room Air Oxygen Flow Rate 06/24/22 14:15 06/24/22 14:30 06/24/22 15:00 Temperature 98.4 F 97.8 F 97.8 F Pulse Rate Pulse Rate [Pulse Oximeter] 72 71 66 Respiratory Rate 14 14 14 Blood Pressure Blood Pressure [Ri ght Arm] 119/78 110/73 117/68 Pulse Oximetry 100 96 94 Oxygen Delivery Me thod Nasal Cannula Nasal Cannula Room Air Oxygen Flow Rate 1 1 Assessment and Plan Assessment and plan (1) S/P hip replacement: Status: Acute Assessment and Plan: - pain management and prophylaxis per orthopedic surgery team - continue home medications for comorbidities as noted above - anticipate routine postoperative course (2) Asthma: Problem comment: mild intermittent Status: Acute (3) Non-insulin dependent diabetes mellitus: Status: Acute (4) MARII on CPAP: Status: Acute
[2022-06-24] MEDS: CEFAZOLIN 2 GM in 0.9 % SODIUM CHLORIDE Mini-bag 100 ML IVPB (16:37)
[2022-06-24] MEDS: OXYCODONE 5 MG TABLET PO (16:50)
--- NOTE | 2022-06-24 19:52 | PC.NURSE ---
End of Shift: Patient pleasant and cooperative. Patient vitally stable, lung clear, BS WNL, IV running LR at 75. Patient rating pain at most 4/10, 5mg of oxy given, zophran also given for nausea. Patient has been sleepy since returning from surgery. Patient as taken ice chips and jello. This technical writer and editor helped next RN get patient up to toilet and patient was nauseous with activity. Right Hip dressing C/D/I. Patient ordered dinner but has not yet eaten it.
[2022-06-24] MEDS: SENNOSIDES 1 TAB TABLET 2 TAB PO (21:22)
[2022-06-24] MEDS: GABAPENTIN 300 MG CAPSULE PO (21:23)
[2022-06-24] MEDS: SIMVASTATIN 20 MG TABLET PO (21:23)
[2022-06-24] MEDS: MONTELUKAST 10 MG TABLET PO (21:23)
[2022-06-25] VITALS: BP 122/77; PULSE 67; PULSE 96; RESP 16; TEMP 36.6; O2SAT 96
[2022-06-25] MEDS: CEFAZOLIN 2 GM in 0.9 % SODIUM CHLORIDE Mini-bag 100 ML IVPB ×2 (00:03→08:42)
[2022-06-25 04:00] VITALS: BP 139/84; PULSE 92; RESP 18; TEMP 36.6; O2SAT 99
[2022-06-25] MEDS: ACETAMINOPHEN 500 MG TABLET 1000 MG PO ×2 (05:20→13:40)
[2022-06-25] MEDS: OXYCODONE 5 MG TABLET PO ×2 (05:20→08:42)
[2022-06-25 06:24] LABS: Basophils Percent Auto 0.1 % (0.0-3.0); Hematocrit 32.7 % (33.0-51.0); Hemoglobin* 10.5 gm/dL (12.0-16.0); Immature Granulocytes Abs Auto 0.03 K/uL (0.00-0.30); Lymphocytes Percent Auto 7.7 % (20-44); Mean Corpuscular HGB Conc 32 gm/dL (32-36); Mean Corpuscular Hemoglobin 31 pg (26-34); Mean Corpuscular Volume 95 fL (80-100); Monocytes Percent Auto 6.9 % (0.0-11.0); Neutrophils Percent Auto 85.1 % (42.0-72.0); Platelet Count* 206 K/uL (140-440); RDW Coefficient of Variation % 13.4 % (11.5-15.5); Red Blood Count 3.43 m/uL (4.00-5.20); White Blood Count* 13.81 K/uL (4.50-11.00)
[2022-06-25] MEDS: OMEPRAZOLE 20 MG CAPSULE DR PO (06:28)
[2022-06-25 06:33] LABS: Potassium* 4.2 mmol/L (3.6-5.1); Sodium* 138 mmol/L (135-149)
[2022-06-25 06:33] LABS: Slide Review Reflex No
[2022-06-25 06:36] LABS: Creatinine* 0.9 mg/dL (0.5-1.5); Est. Creatinine Clearance* 63.78; Estimated Glomerular Filt Rate 74 ml/min
[2022-06-25 06:37] LABS: Blood Urea Nitrogen* 13 mg/dL (7-30)
--- NOTE | 2022-06-25 07:19 | PC.NURSE ---
END OF SHIFT NOTE: PT PLEASANT AND COOPERATIVE. PT AMBULATES WITH WALKER, GB, A1/SBA TO BATHROOM. DENIES CP AND SOB. PT NAUSEATED AT BEGINNING OF SHIFT THAT WAS RESOLVED WITH THE ADMINISTRATION OF ZOFRAN AND THE USE OF AROMATHERAPY PATCH. DRESSING TO RIGHT HIP IS CDI. VSS ON RA; AFEBRILE. PT REFUSED DINNER TRAY; ATE APPLESAUCE X2.
--- NOTE | 2022-06-25 08:18 | PM.ORPN ---
Subjective Subjective Time Seen by Provider: 07:00 Date Seen: 06/25/22 Principal diagnosis: Status post right hip replaced Interval history: Bebe is comfortable this morning. Her hip is improved from preop. She plans to discharge to home today. Ortho Exam Narrative Exam Narrative: Alert and oriented x3. Patient is in no acute distress. Converses without labored breathing. Hearing is grossly intact. Ambulates with a walker. Examination of the right lower extremity shows CMS is intact right lower extremity. Dressing is intact. Bilateral calves are soft and nontender. Mild soft tissue edema about the hip. Unable to straight leg raise. Quad strength is moderate. No erythema or sign of infection. Const Vital Signs, click to edit/add: Vital Signs - 24 hr 06/24/22 08:45 06/24/22 08:50 06/24/22 08:55 Temperature Pulse Rate 83 79 80 Pulse Rate [Pulse Oximeter] Respiratory Rate 14 14 14 Blood Pressure 116/89 110/74 110/74 Blood Pressure [Right Arm] Pulse Oximetry 99 99 98 Oxygen Delivery Method Nasal Cannula Nasal Cannula Nasal Cannula Oxygen Flow Rate 2 2 2 06/24/22 09:06 06/24/22 12:16 06/24/22 12:20 Temperature 97.7 F 97.7 F Pulse Rate 74 96 95 Pulse Rate [Pulse Oximeter] Respiratory Rate 16 14 14 Blood Pressure 108/74 106/67 105/75 Blood Pressure [Right Arm] Pulse Oximetry 100 100 100 Oxygen Delivery Method Nasal Cannula OxyMask OxyMask Oxygen Flow Rate 2 6 6 06/24/22 12:30 06/24/22 12:25 06/24/22 12:35 Temperature 97.7 F 97.7 F 97.7 F Pulse Rate 88 90 80 Pulse Rate [Pulse Oximeter] Respiratory Rate 16 15 16 Blood Pressure 100/69 104/71 97/66 Blood Pressure [Right Arm] Pulse Oximetry 100 100 100 Oxygen Delivery Method OxyMask OxyMask OxyMask Oxygen Flow Rate 6 6 6 06/24/22 12:50 06/24/22 12:40 06/24/22 12:45 Temperature 97.7 F 97.7 F 97.7 F Pulse Rate 80 82 77 Pulse Rate [Pulse Oximeter] Respiratory Rate 20 15 16 Blood Pressure 104/68 109/68 111/67 Blood Pressure [Right Arm] Pulse Oximetry 97 100 98 Oxygen Delivery Method Room Air OxyMask Room Air Oxygen Flow Rate 0 6 0 06/24/22 12:55 06/24/22 13:00 06/24/22 13:05 Temperature 97.7 F 97.7 F 97.7 F Pulse Rate 83 76 77 Pulse Rate [Pulse Oximeter] Respiratory Rate 20 12 12 Blood Pressure 101/66 93/59 L 100/63 Blood Pressure [Right Arm] Pulse Oximetry 100 100 95 Oxygen Delivery Method Room Air Room Air OxyMask Oxygen Flow Rate 0 0 6 06/24/22 13:10 06/24/22 13:15 06/24/22 13:20 Temperature 97.7 F 97.7 F 97.8 F Pulse Rate 78 77 74 Pulse Rate [Pulse Oximeter] Respiratory Rate 12 12 12 Blood Pressure 102/69 100/67 95/58 L Blood Pressure [Right Arm] Pulse Oximetry 100 100 92 Oxygen Delivery Method OxyMask OxyMask Room Air Oxygen Flow Rate 6 6 0 06/24/22 13:25 06/24/22 13:30 06/24/22 13:44 Temperature 97.8 F 97.8 F 97.9 F Pulse Rate 77 77 72 Pulse Rate [Pulse Oximeter] Respiratory Rate 12 12 14 Blood Pressure 96/54 L 97/60 Blood Pressure [Right Arm] 114/66 Pulse Oximetry 92 98 Oxygen Delivery Method Room Air Room Air Room Air Oxygen Flow Rate 0 0 06/24/22 13:45 06/24/22 14:00 06/24/22 14:15 Temperature 98.1 F 98.5 F 98.4 F Pulse Rate Pulse Rate [Pulse Oximeter] 70 75 72 Respiratory Rate 14 14 14 Blood Pressure Blood Pressure [Right Arm] 108/69 113/78 119/78 Pulse Oximetry 96 94 100 Oxygen Delivery Method Room Air Room Air Nasal Cannula Oxygen Flow Rate 1 06/24/22 14:30 06/24/22 15:00 06/24/22 15:31 Temperature 97.8 F 97.8 F 97.7 F Pulse Rate Pulse Rate [Pulse Oximeter] 71 66 77 Respiratory Rate 14 14 14 Blood Pressure Blood Pressure [Right Arm] 110/73 117/68 117/81 Pulse Oximetry 96 94 96 Oxygen Delivery Method Nasal Cannula Room Air Nasal Cannula Oxygen Flow Rate 1 1 06/24/22 15:00 06/24/22 16:39 06/24/22 17:30 Temperature 98 F 97.8 F Pulse Rate Pulse Rate [Pulse Oximeter] 72 69 Respiratory Rate 14 14 14 Blood Pressure Blood Pressure [Right Arm] 117/75 119/76 Pulse Oximetry 100 92 Oxygen Delivery Method Room Air Room Air Oxygen Flow Rate 06/24/22 18:48 06/24/22 19:20 06/25/22 00:00 Temperature 97.8 F 99.3 F Pulse Rate Pulse Rate [Pulse Oximeter] 64 93 96 Respiratory Rate 14 16 16 Blood Pressure Blood Pressure [Right Arm] 128/81 123/79 Pulse Oximetry 94 96 Oxygen Delivery Method Room Air Room Air Oxygen Flow Rate 06/25/22 00:00 06/25/22 04:00 Temperature 97.8 F 97.8 F Pulse Rate Pulse Rate [Pulse Oximeter] 67 92 Respiratory Rate 16 18 Blood Pressure Blood Pressure [Right Arm] 122/77 139/84 Pulse Oximetry 96 99 Oxygen Delivery Method Room Air Room Air Oxygen Flow Rate Documenting provider has reviewed patient's vital signs: yes Assessment and Plan Assessment and plan (1) S/P hip replacement: Status: Acute Assessment and Plan: Plan for discharge is today to home if they meet discharge criteria. DVT prophylaxis includes Xarelto 10 mg daily for total of 5 days, then aspirin 81 mg twice daily for 30 days, Jaren stockings x1 month may remove for 1 hr per day, frequent ambulation Remove dressing 1 week. Observe wound and phone Orthopedics with any questions or concerns Use Ice on operative hip unrestricted. Return to clinic in 1 week with PA for a wound check Return to clinic in [address] Mc Minimize narcotic use. Wean off and discontinue soon as possible. Activities as tolerated. No strenuous activity. Attend outpt PT (2) Asthma: Problem details: mild intermittent Status: Acute (3) Non-insulin dependent diabetes mellitus: Status: Acute (4) MARII on CPAP: Status: Acute
[2022-06-25 08:33] VITALS: BP 97/53; PULSE 75; RESP 18; TEMP 36.4; O2SAT 96
[2022-06-25] MEDS: RIVAROXABAN 10 MG TABLET PO (08:42)
[2022-06-25] MEDS: GABAPENTIN 300 MG CAPSULE PO ×2 (08:42→13:40)
[2022-06-25] MEDS: CELECOXIB 200 MG CAPSULE PO (08:42)
[2022-06-25] MEDS: SENNOSIDES 1 TAB TABLET 2 TAB PO (08:42)
== END 2022-06-25 18:10 | disposition home or self-care (01) ==
LOC: OR 06:44 → MEDSURG 06:46
PROVIDERS: PCP Physician Assistant; Visit Provider Orthopaedic Surgery
PROC: (CPT 27130; principal; 2022-06-24 08:30)
DX: M16.11 Unilateral primary osteoarthritis, right hip (principal); G47.33 Obstructive sleep apnea (adult) (pediatric); E11.9 Type 2 diabetes mellitus without complications; I10 Essential (primary) hypertension; J45.30 Mild persistent asthma, uncomplicated; F17.210 Nicotine dependence, cigarettes, uncomplicated; M54.16 Radiculopathy, lumbar region
CPT/HCPCS: 27130; 1214; 36415; 64450; 73501; 76942; 82565; 82962; 84132; 84295; 84520; 85025; 97110; 97116; 97161; 97165; 97535; A9270; C1776; J0330; J0690; J1100; J1170; J2250; J2370; J2405; J2704; J2765; J2795; J3010; J7120

== ENCOUNTER 2022-09-19 11:00 | Outpatient (RCR) | payer OTHER, SELFPAY | END 2023-02-10 14:37 | disposition home or self-care (01) | PROVIDERS: PCP Physician Assistant; Visit Provider Orthopaedic Surgery | DX: M16.11 Unilateral primary osteoarthritis, right hip (principal); Z96.642 Presence of left artificial hip joint; R26.81 Unsteadiness on feet; R26.89 Other abnormalities of gait and mobility; R52 Pain, unspecified; Z51.89 Encounter for other specified aftercare | CPT/HCPCS: 97110; 97116; 97140; 97162; 97164; 97530 ==

== ENCOUNTER 2022-10-28 10:15 | Emergency (ER) | payer OTHER, SELFPAY ==
[2022-10-28 10:21] VITALS: BP 126/85; PULSE 102; RESP 18; TEMP 37; O2SAT 96; BMI 38.7
--- NOTE | 2022-10-28 11:23 | CRLHL7_ITS ---
For Patients: As a result of the Century Cures Act, medical imaging exams and procedure reports are released immediately into your electronic medical record. You may view this report before your referring provider. If you have questions, please contact your health care provider. INDICATION: back pain TECHNIQUE: 3-view lumbar spine. COMPARISON: none FINDINGS: There is no compression fracture. Degenerative facet arthropathy lower lumbar spine noted with slight anterolisthesis of L4 on L5. Multilevel discogenic spurring. Vascular calcifications. Right hip replacement hardware. IMPRESSION: No fracture. Dictated by Tom Pacheco MD @ 10/28/2022 12:26:28 PM (Electronically Signed)
[2022-10-28] MEDS: ACETAMINOPHEN 500 MG TABLET 1000 MG PO (11:29)
--- NOTE | 2022-10-28 12:30 | ED.BACK ---
HPI - Back Pain/Injury General Date Seen: 10/28/22 Chief Complaint: Back Injury/Pain Stated Complaint: Severe back pain Time Seen by Provider: 10/28/22 11:11 Source: patient Mode of arrival: ambulatory Limitations: no limitations History of Present Illness HPI Narrative: Patient is a very nice 57-year-old female who presents here with back pain she has had for the last 4 days, she bent over notice the pain in her back she describes a wrapping around her back, maybe a little bit to her groins bilaterally does not go into her legs, there is no numbness tingling weakness she has had no bowel or bladder symptoms associated with this no fevers chills or sweats. She had a history of a recent hip surgery and had this back pain ongoing for a while before this. She has tried ice and heat, and also some Tylenol. She tries to avoid ibuprofen goes a cause some stomach upset. No history of falls or injury, no past history of cancers. MD elicited complaint: back pain Pertinent past history: prior back pain Onset (ago): day(s) Timing: constant Severity: moderate Similar Symptoms Previously: Yes Quality: burning, stabbing and aching Context: bending Associated symptoms: denies other symptoms Treatments prior to arrival: cold therapy, heat therapy and acetaminophen Work related injury: No Related Data Home Medications Medication Instructions Recorded Confirmed fluticasone propionate 50 2 spray intranasal DAILY 05/23/22 08/06/22 mcg/actuation nasal spray,suspension gabapentin 300 mg capsule 300 - 600 mg PO TID 05/23/22 08/06/22 losartan 100 mg tablet 100 mg PO DAILY 05/23/22 08/06/22 rizatriptan 5 mg tablet 5 mg PO Q2H PRN 05/23/22 08/06/22 simvastatin 20 mg tablet 20 mg PO HS 05/23/22 08/06/22 albuterol sulfate 90 mcg/actuation 2 puff inhalation Q4H PRN 06/23/22 08/06/22 aerosol inhaler diphenhydramine HCl 25 mg tablet 25 mg PO QHS PRN 06/23/22 08/06/22 (Jtapo-O-Inoe) mometasone-formoterol HFA 200 2 inh inhalation BID 06/23/22 08/06/22 mcg-5 mcg/actuation aerosol inhaler (Dulera) montelukast 10 mg tablet 10 mg PO HS 06/23/22 08/06/22 multivitamin 1 tab PO DAILY 06/23/22 08/06/22 pantoprazole 20 mg tablet,delayed 20 mg PO DAILY 06/23/22 08/06/22 release Previous Rx's Medication Instructions Recorded acetaminophen 500 mg capsule 500 - 1,000 mg PO Q6H PRN pain 06/24/22 #100 caps cyclobenzaprine 5 mg tablet 5 mg PO TID PRN muscle spasm #14 10/28/22 tabs prednisone 50 mg tablet 50 mg PO DAILY #5 tabs 10/28/22 Allergies Allergy/AdvReac Type Severity Reaction Status Date / Time Penicillins Allergy Intermediate Unknown Verified 08/06/22 15:06 azithromycin Allergy Unknown Verified 08/06/22 15:06 hydrocodone Allergy Chest Pain Verified 08/06/22 15:06 latex Allergy Rash Verified 08/06/22 15:06 Review of Systems Status of ROS: Reports: 10 or more systems reviewed and unremarkable except as noted in History and below [facility] Medical History Asthma Colitis Diverticulitis of large intestine without perforation or abscess without bleeding Dry eyes High cholesterol Hypertension Low back pain Non-insulin dependent diabetes mellitus MARII on CPAP Pancreatic abnormality Peptic ulcer Surgical History History of cholecystectomy S/P total right hip arthroplasty (06/24/22) Social History Smoking Status: Current every day smoker What tobacco products do you use: cigarettes Years smoked: 30 How often do you have a drink containing alcohol: monthly or less How many standard drinks containing alcohol do you have on a typical day: 1 or 2 How often do you have six or more drinks on one occasion: Less than monthly AUDIT-C Alcohol total score: 2 Non-prescribed substance use: denies use Caffeine: No Are you using contraception or practicing any form of control: No service: No Exam Narrative: Exam Narrative: Patient is seen in room 3 she is in no apparent distress, she is able to get up for me slowly to the standing position but she is in a slow off forward hunched position. No palpable tenderness is noted on her back on palpation percussion, she can almost come up to full extension. No scars from previous surgery, grossly perianal sensation is normal. Heel and toe walking were normally she is able to flex to mid kearns, side flexion normal and rotation of her upper thoracic area is normal. Knee jerks are 0/4 bilaterally as are ankle jerks, EHL, great toe flexors, knee flexors and extensors, hip flexors are all graded 5/5 power, sensation is normal in her lower extremities, pulses are normal, no edema. Const: Vital Signs, click to edit/add: Vital Signs - 24 hr 10/28/22 10:21 Temperature 98.6 F Pulse Rate [Pulse Oximeter] 102 H Respiratory Rate 18 Blood Pressure [Ri ght Upper Arm] 126/85 Pulse Oximetry 96 Oxygen Delivery Me thod Room Air Documenting provider has reviewed patient's vital signs: yes Course Vital Signs Vital signs: Initial Vital Signs Temperature 98.6 F 10/28/22 10:21 Temperature Source Temporal Artery Scan 10/28/22 10:21 Pulse Rate 102 H 10/28/22 10:21 Respiratory Rate 18 10/28/22 10:21 Blood Pressure 126/85 10/28/22 10:21 Blood Pressure Mean 98 10/28/22 10:21 Blood Pressure Position Supine 10/28/22 10:21 Pulse Oximetry 96 10/28/22 10:21 Oxygen Delivery Method 10/28/22 10:21 Vital Signs Temperature 98.6 F 10/28/22 10:21 Pulse Rate 102 H 10/28/22 10:21 Respiratory Rate 18 10/28/22 10:21 Blood Pressure 126/85 10/28/22 10:21 Pulse Oximetry 96 10/28/22 10:21 Oxygen Delivery Method 10/28/22 10:21 Temperature 98.6 F 10/28/22 10:21 Pulse Rate 102 H 10/28/22 10:21 Respiratory Rate 18 10/28/22 10:21 Blood Pressure 126/85 10/28/22 10:21 Pulse Oximetry 96 10/28/22 10:21 Oxygen Delivery Method 10/28/22 10:21 MDM - Back Pain/Injury MDM Narrative Medical decision making narrative: Life-threatening differential diagnosis considered include: Cauda equina an epidural abscess, other differential diagnosis considered includes sprain, contusion, nerve root entrapment, radiculopathy, muscle spasm, urolithiasis, lumbar fracture, pyelonephritis, appendicitis, biliary colic, as well as other etiologies. The patient denies saddle anesthesia bowel or bladder incontinence or lower extremity weakness, recent weight loss, or history of malignancy. Medical Records Attestation: I reviewed the patient's medical records. Imaging Data Lumbar: Attestation: I have reviewed the pertinent imaging results. My impression: Excellent disc spaces, no acute the compression deformity, no significant spondylolisthesis, increased facet joint arthropathy is noted. Radiological over-read pending Radiologist's impression: Patient: LUZ MARINA ROBERTS Facility:?[facility] Patient ID:?[id number] Site Patient ID:?[id number]. Site :?[id number] Study:?XRay Spine Lumbar 3 view-10/28/2022 11:49:06 AM Ordering Physician:Joanna Evans Final Report: INDICATION: back pain TECHNIQUE: 3-view lumbar spine. COMPARISON: none FINDINGS: There is no compression fracture. Degenerative facet arthropathy lower lumbar spine noted with slight anterolisthesis of L4 on L5. Multilevel discogenic spurring. Vascular calcifications. Right hip replacement hardware. IMPRESSION: No fracture. Dictated by Tom Pacheco MD @ 10/28/2022 12:26:28 PM (Electronic Signature) Discharge Plan Discharge Clinical Impression: Back pain Patient Disposition: Home, Self-Care Condition: Stable Instructions: Back Pain (ED) Additional Instructions: Home rest medications as directed, the prednisone will increase her sugars, follow-up with primary care, return as needed. With stop using heat, just use ice. Activity Level: No Restrictions Prescriptions: New prednisone 50 mg tablet 50 mg PO DAILY Qty: 5 0RF cyclobenzaprine 5 mg tablet 5 mg PO TID PRN (Reason: muscle spasm) Qty: 14 0RF No Action rizatriptan 5 mg tablet 5 mg PO Q2H PRN fluticasone propionate 50 mcg/actuation spray,suspension 2 spray intranasal DAILY losartan 100 mg tablet 100 mg PO DAILY gabapentin 300 mg capsule 300 - 600 mg PO TID Label Comments: 300 MG IN AM AND PM 600 MG HS simvastatin 20 mg tablet 20 mg PO HS albuterol sulfate 90 mcg/actuation HFA aerosol inhaler 2 puff INHALATION Q4H PRN Label Comments: INHALE 1-2 PUFFS BY MOUTH EVERY 4 HOURS IF NEEDED FOR SHORTNESS OF BREATH diphenhydramine HCl [[id number]-[id number]] 25 mg tablet 25 mg PO QHS PRN Dulera 200-5 mcg/actuation HFA aerosol inhaler 2 inh inhalation BID Label Comments: Has not been using montelukast 10 mg tablet 10 mg PO HS multivitamin Tablet 1 tab PO DAILY pantoprazole 20 mg tablet,delayed release (DR/EC) 20 mg PO DAILY Label Comments: Take 1 Tablet (20 mg) by mouth once daily before a meal. acetaminophen 500 mg capsule 500 - 1,000 mg PO Q6H MDD 4000mg per day PRN (Reason: pain) Qty: 100 0RF Follow Up/Referrals: Chante Manley PA [Primary Care Provider] - [facility]: [facility] Info Inst[facility]
== END 2022-10-28 12:39 | disposition home or self-care (01) ==
PROVIDERS: Emergency Provider Family Medicine; PCP Physician Assistant
DX: M54.9 Dorsalgia, unspecified (principal)
CPT/HCPCS: 72100; 99283; A9270

== ENCOUNTER 2023-07-29 13:27 | Emergency (ER) | payer OTHER, SELFPAY ==
[2023-07-29 13:35] VITALS: BP 140/79; PULSE 90; RESP 18; TEMP 36.7; O2SAT 98; BMI 40.4
--- OUTSIDE RECORDS SUMMARY | 2023-07-29 14:12 | XMS_ITS | Continuity of Care Document ---
Author Name Unknown Organization [facility] Address [address] [place] [address] Phone Care Team Providers Care Industrial Organization Manager Name Role Phone Wagner Booker MD Unavailable Unavailab le Allergies, Adverse Reactions, Alerts Substance Reaction Status Criticality azithromycin Active No Information HYDROCODONE BITARTRATE Active No In formation acetaminophen Active No Information PENICILLIN Active No Information Medications Medication Instructions Dosage Effective Dates (start - stop) Status Comments ALBUTEROL SULFATE HFA (unknown strength) Not Available - Active ASPIRIN (unknown strength) Not Available - Active BENADRYL (unknown strength) Not Available - Active FLONASE ALLERGY RELIEF (unknown strength) Not Available - Active GABAPENTIN (unknown strength) Not Available - Active GLUCOSAMINE-CHONDROITIN (unknown strength) Not Available - Active LORATADINE (unknown strength) Not Available - Active LOSARTAN POTASSIUM (unknown strength) Not Available - Active MULTIVITAMINS (unknown strength) Not Available - Active NAPROXEN (unknown strength) Not Available - Active RIZATRIPTAN (unknown strength) Not Available - Active RANITIDINE HCL (unknown strength) Not Available - Active SIMVASTATIN (unknown strength) Not Available - Active Procedures Procedure Date Office/Outpatient Visit,[facility], [facility] [place] 2018 Advance Directives Directive Yes / No Effective Date File Name No Information Encounters Encounter Description Practice Location Reason(s) For Visit Diagnoses Date Provider Providers Copied on Encounter [facility], [address], [place], [id number], [place] tel:[phone] ISAEL [facility] No Information Jhony nuno [facility], [address], [address], [place], [id number], [place]. tel:[phone] Office/Outpati ent Visit,[facility], [facility] [place] [facility], [address], [place], [id number], [place] tel:[phone] [facility] [place] Low back pain Kati Hughes. [facility], [address], [place], [address], [place]. tel:[phone] Referring Provider: Arvin Marcano, [facility] [address] [place], [address]. tel:[phone] Family History Family Member Type Diagnosis Age At Onset No Information Payers Payer name Insurance type Covered alliance party ID Authoriza tiprisca(s) No Information Social History Type Description Quantity Date Captured Comments Alcohol Use Details Unknown Caffeine Use Details Unknown Tobacco Use Status Occasional cigarette smoker Smoking Status Current every day smoker Smoking Tobacco Use Details Cigarette: No Details Available Cigarette: No Details Available Sex Female Vital Signs Date / Time: Height Weight BMI Pulse Rate Blood Pressure Temperature Respiratory Rate Body Surface Area Head Circumference Head Circ. Percentile Wt./Dustin. Percentile BMI percentile Pulse Ox Inhaled Ox 10:27 AM 65.50 in 107.048 kg (236.00 lbs) 38.6 7 kg/m eter (2) 106 /min 123/93 mm[Hg] Chief Complaint And Reason For Visit No Information Reason For Referral Reason For Referral No Information History Of Present Illness Encounter Date Complaint History Of Prese nt Illness No Information Functional Status Date Functional Assessmen t No Information Instructions Date Instruction Additional Infor mation No Information Assessments Type Assessment Date No Information Patient Care Teams Name Effective Dates (start - stop) Status Members No Information
--- NOTE | 2023-07-29 14:14 | ED.GENADULT ---
HPI - General Adult General Time Seen by Provider: 14:14 Date Seen: 07/29/23 Chief complaint: Back Injury/Pain Stated complaint: back pain Time Seen by Provider: 07/29/23 13:59 Source: patient Mode of arrival: ambulatory Limitations: physical limitation History of Present Illness HPI narrative: Patient is a 58-year-old black female who has had back pain since bending over yesterday at [employer] at her job and sustaining pain in her right low back and buttock area little bit into her thigh. She has had a hip replaced on that side but it is doing very well. She has had Dr. Davenport do that. She denies fever chills weight loss. She denies bowel or bladder incontinence. She is here on a work comp issue. She is able to ambulate. Walks in a slightly flexed position. Related Data Home Medications Medication Instructions Recorded Confirmed fluticasone propionate 50 2 spray intranasal DAILY 05/23/22 03/30/23 mcg/actuation nasal spray,suspension losartan 100 mg tablet 100 mg PO DAILY 05/23/22 03/30/23 rizatriptan 5 mg tablet 5 mg PO Q2H PRN 05/23/22 03/30/23 simvastatin 20 mg tablet 20 mg PO HS 05/23/22 03/30/23 albuterol sulfate 90 mcg/actuation 2 puff inhalation Q4H PRN 06/23/22 03/30/23 aerosol inhaler diphenhydramine HCl 25 mg tablet 25 mg PO QHS PRN 06/23/22 03/30/23 ([id number]) mometasone-formoterol HFA 200 2 inh inhalation BID 06/23/22 03/30/23 mcg-5 mcg/actuation aerosol inhaler (Dulera) montelukast 10 mg tablet 10 mg PO HS 06/23/22 03/30/23 multivitamin 1 tab PO DAILY 06/23/22 03/30/23 pantoprazole 20 mg tablet,delayed 20 mg PO DAILY 06/23/22 03/30/23 release gabapentin 300 mg capsule 300 - 600 mg PO BID 03/30/23 03/30/23 Previous Rx's Medication Instructions Recorded acetaminophen 500 mg capsule 500 - 1,000 mg (1 - 2 x 500 mg) PO 06/24/22 Q6H PRN pain #100 caps celecoxib 200 mg capsule (Celebrex) 200 mg PO DAILY #7 caps 07/29/23 methylprednisolone 4 mg tablets in See Rx Instructions PO .COMPLEX 07/29/23 a dose pack (Medrol (Torey)) #21 ea Allergies Allergy/AdvReac Type Severity Reaction Status Date / Time Penicillins Allergy Intermediate Unknown Verified 03/30/23 14:56 azithromycin Allergy Unknown Verified 03/30/23 14:56 hydrocodone Allergy Chest Pain Verified 03/30/23 14:56 latex Allergy Rash Verified 03/30/23 14:56 Review of Systems Status of ROS: Reports: 6 or more systems reviewed and unremarkable except as noted in History and below 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 (ICD-10) Dry eyes ?H04.123 - Dry eye syndrome of bilateral lacrimal glands (ICD-10) Diverticulitis of large intestine without perforation or abscess without bleeding ?K57.32 - Diverticulitis of large intestine without perforation or abscess without bleeding (ICD-10) Colitis ?K52.9 - Noninfective gastroenteritis and colitis, unspecified (ICD-10) Non-insulin dependent diabetes mellitus MARII on CPAP ?G47.33 - Obstructive sleep apnea (adult) (pediatric) (ICD-10) ?Z99.89 - Dependence on other enabling machines and devices (ICD-10) Low back pain ?M54.50 - Low back pain, unspecified (ICD-10) Peptic ulcer ?K27.9 - Peptic ulcer, site unspecified, unspecified as acute or chronic, without hemorrhage or perforation (ICD-10) High cholesterol ?E78.00 - Pure hypercholesterolemia, unspecified (ICD-10) Hypertension ?I10 - Essential (primary) hypertension (ICD-10) Asthma ?J45.909 - Unspecified asthma, uncomplicated (ICD-10) Surgical History S/P total right hip arthroplasty (06/24/22) ?Z96.641 - Presence of right artificial hip joint (ICD-10) History of cholecystectomy ?Z90.49 - Acquired absence of other specified parts of digestive tract (ICD-10) Social History Smoking Status: Current every day smoker What tobacco products do you use: cigarettes Years smoked: 30 How often do you have a drink containing alcohol: monthly or less How many standard drinks containing alcohol do you have on a typical day: 1 or 2 How often do you have six or more drinks on one occasion: Less than monthly AUDIT-C Alcohol total score: 2 Non-prescribed substance use: denies use Caffeine: No Are you using contraception or practicing any form of control: No service: No Exam Narrative: Exam Narrative: Objective: Patient is alert orient x3, is able to get and walk about the room normal strength sensation lower extremities negative straight leg raise bilaterally full range of motion of the right hip Low back exam shows no palpable tenderness, patient walks a slightly flexed position. Const: Vital Signs, click to edit/add: Vital Signs - 24 hr 07/29/23 13:35 Temperature 98.0 F Pulse Rate [Right Pulse Oximeter] 90 Respiratory Rate 18 Blood Pressure [Ri ght Upper Arm] 140/79 H Pulse Oximetry 98 Oxygen Delivery Me thod Room Air Course Vital Signs Vital signs: Initial Vital Signs Temperature 98.0 F 07/29/23 13:35 Temperature Source Temporal Artery Scan 07/29/23 13:35 Pulse Rate 90 07/29/23 13:35 Respiratory Rate 18 07/29/23 13:35 Blood Pressure 140/79 H 07/29/23 13:35 Blood Pressure Mean 99 07/29/23 13:35 Blood Pressure Position Sitting 07/29/23 13:35 Pulse Oximetry 98 07/29/23 13:35 Oxygen Delivery Method Room Air 07/29/23 13:35 Vital Signs Temperature 98.0 F 07/29/23 13:35 Pulse Rate 90 07/29/23 13:35 Respiratory Rate 18 07/29/23 13:35 Blood Pressure 140/79 H 07/29/23 13:35 Pulse Oximetry 98 07/29/23 13:35 Oxygen Delivery Method Room Air 07/29/23 13:35 Temperature 98.0 F 07/29/23 13:35 Pulse Rate 90 07/29/23 13:35 Respiratory Rate 18 07/29/23 13:35 Blood Pressure 140/79 H 07/29/23 13:35 Pulse Oximetry 98 07/29/23 13:35 Oxygen Delivery Method Room Air 07/29/23 13:35 Medical Decision Making MDM Narrative Medical decision making narrative: 58-year-old female with acute onset low back pain. I will give her Celebrex to use as needed, Medrol Dosepak. She has been off her usual medications for while but recommend she restart the pantoprazole while she is taking the Celebrex in the Celebrex she can use as needed for pain. Given her multiple medical issues perhaps just p.r.n. Celebrex to be most appropriate. The Medrol should help to help her symptoms, recommend off work for the next week, ice to the back, gentle range of motion, recheck with regular doctor next 3-5 days to determine if PT or other assessment would be appropriate and return to work plan. Discharge Plan Discharge Clinical Impression: Low back pain Patient Disposition: Home, Self-Care Condition: Stable Additional Instructions: Light activity, recommend off work for the next 7 days, would write a note to that effect, would have her on Medrol and Celebrex as needed p.r.n. for 7 days. I think she will improve. Consult primary care in the next few days as needed, may need PT or other imaging if not improving. At this point though she injured herself bending over yesterday at work and I think she will improve with just symptomatic management and ice and restricted activity and medication. Activity Level: Light activity Discharge Diet: Regular Prescriptions: New methylprednisolone [Medrol (Torey)] 4 mg tablets,dose pack See Rx Instructions .ROUTE .COMPLEX Qty: 21 0RF Rx Instructions: orally per package directions celecoxib [Celebrex] 200 mg capsule 200 mg PO DAILY Qty: 7 2RF No Action rizatriptan 5 mg tablet 5 mg PO Q2H PRN fluticasone propionate 50 mcg/actuation spray,suspension 2 spray intranasal DAILY losartan 100 mg tablet 100 mg PO DAILY simvastatin 20 mg tablet 20 mg PO HS gabapentin 300 mg capsule 300 - 600 mg PO BID Patient Comments: 600 mg 4PM 600 mg HS albuterol sulfate 90 mcg/actuation HFA aerosol inhaler 2 puff INHALATION Q4H PRN Patient Comments: INHALE 1-2 PUFFS BY MOUTH EVERY 4 HOURS IF NEEDED FOR SHORTNESS OF BREATH diphenhydramine HCl [Epmbk-J-Bona] 25 mg tablet 25 mg PO QHS PRN Dulera 200-5 mcg/actuation HFA aerosol inhaler 2 inh inhalation BID Patient Comments: Has not been using montelukast 10 mg tablet 10 mg PO HS multivitamin Tablet 1 tab PO DAILY pantoprazole 20 mg tablet,delayed release (DR/EC) 20 mg PO DAILY Patient Comments: Take 1 Tablet (20 mg) by mouth once daily before a meal. acetaminophen 500 mg capsule 500 - 1,000 mg PO Q6H MDD 4000mg per day PRN (Reason: pain) Qty: 100 0RF Follow Up/Referrals: Chante Manley PA [Primary Care Provider] - Stand Alone Forms: MyHealth Info Instructions
== END 2023-07-29 14:28 | disposition home or self-care (01) ==
PROVIDERS: Emergency Provider Family Medicine; PCP Physician Assistant
DX: M54.50 Low back pain, unspecified (principal)
CPT/HCPCS: 99283

== ENCOUNTER 2024-03-11 13:45 | Outpatient (RCR) | payer MEDICAID, SELFPAY | END 2024-07-09 23:59 | disposition home or self-care (01) | PROVIDERS: PCP Physician Assistant; Visit Provider Physician Assistant | DX: M54.41 Lumbago with sciatica, right side (principal); Z51.89 Encounter for other specified aftercare | CPT/HCPCS: 97110; 97140; 97162 ==